=== PATIENT | female | born 2000 | race Caucasian/White ===

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

== ENCOUNTER 2019-12-23 20:01 | Emergency (ER) | payer OTHER, SELFPAY ==
[2019-12-23 20:18] VITALS: BP 97/47; PULSE 70; RESP 16; TEMP 36.7; O2SAT 98; BMI 18.8
--- NOTE | 2019-12-23 20:30 | XR_ITS ---
PROCEDURE: XR FOOT LT MIN 3V CLINICAL INDICATION: pain posttraumatic pain, laceration on top of the foot COMPARISON: No exams were available for comparison FINDINGS: No fracture or dislocation. No lytic or blastic change. There is normal mineralization. The joint spaces are well-preserved. No significant degenerative/arthritic changes. No erosive changes evident. Other findings:None. IMPRESSION: No acute findings. Dictated by: Homar Rivero MD 12/24/2019 08:14 Electronically signed by Homar Rivero MD in [place] 12/24/2019 08:14
[2019-12-23 20:42] VITALS: BP 97/47; PULSE 70; RESP 16; TEMP 36.7; O2SAT 98; BMI 18.8
--- NOTE | 2019-12-23 21:17 | HMH.EDUTC ---
[facility] [place] Clinical Impression: Laceration of left foot Qualifiers: Encounter type: initial encounter Qualified Code(s): S91.312A - Laceration without foreign body, left foot, initial encounter Disposition: Home, Self-Care Condition on Discharge: Good Instructions: How to Care for a Laceration After Repair, DI for Laceration Repair -- Complex Additional Instructions: Keep the wound clean and dry. Keep a dressing on it if you are going to be getting it dirty. Watch the for signs of infection, such as redness, swelling, drainage, fever. etc. Take tylenol or ibuprofen for pain. Follow up with her regular doctor. Return in 10 to 12 days to have the sutures removed. GO TO THE ER FOR ANY WORSENING SYMPTOMS OR CONCERNS. Referrals: Provider,Referral, MD [Primary Care Provider] - Time of Disposition: 21:20 Medical Decision Making - Medical Records Medical records reviewed: Yes: I reviewed the patient's medical records. - Nick Inquiry Pt receiving controlled substance: No Vital Signs: 12/23/19 20:18 12/23/19 20:42 12/23/19 21:30 Temperature 98.1 F 98.1 F 98.1 F Temperature Source Oral Oral Pulse Rate 70 Pulse Rate [Right] 70 70 Respiratory Rate 16 16 16 Blood Pressure 97/47 L Blood Pressure [Left Arm] 97/47 L 97/47 L Blood Pressure Mean [Left Arm] 63 63 Blood Pressure Source [Left Arm] Automatic Cuff Automatic Cuff Blood Pressure Position [Left Arm] Supine Sitting 02 Sat by Pulse Oximetry 98 98 Oxygen Delivery Method Room Air Room Air Orders (Tests/Meds): ORDERS Category Date Time Status Foot XR left minimum 3 views [XR foot LT min 3V] Stat Exams 12/23/19 20:30 Taken [facility] [place] HPI - General Stated complaint: lac to left foot @ 1930 Time Seen by Provider: 12/23/19 20:15 Mode of Arrival: Ambulatory Source of Information: Patient Limitations: No Limitations Description of Symptoms (Recalled from Triage Doc. by RN): PATIENT C/O LEFT FOOT PAIN AND LACERATION TO TOP OF LEFT FOOT AFTER KICKING A TABLE TODAY HEENT Symptoms (Recalled from RN notes): No Resp Symptoms (Recalled from RN notes): No Skin Symptoms (Recalled from RN notes): Yes MS Symptoms (Recalled from RN notes): Yes Functional Status (Recalled from RN notes): WNL - History of Present Illness Provider Complaint: She accidentily bumped her left foot into the metal part under a table. She received a laceration on the dorsal aspect of her left foot. She states that the wound has been bleeding some too. - Related Data Allergies Allergy/AdvReac Type Severity Reaction Status Date / Time No Known Allergies Allergy Verified 11/06/18 15:50 - Worker's Comp Is this a Worker's Comp case?: No [facility] History - Hepatitis A Screen Drug use history?: No High risk sexual behaviors?: No History of sexually transmitted infection?: No Currently employed?: No Childcare worker?: No Do you have indoor plumbing?: Yes Do you have electricity?: Yes Attestation statement:: This patient has been screened for Hepatitis A risk factors. I have reviewed the patient's past medical history: Yes Medical History: Denies:: Cancer, Diabetes Mellitus Type 1, Diabetes Mellitus Type 2, MRSA Laterality Cases: Bilateral: Tonsillectomy Other Surgeries: Yes: No Previous Surgery Amputation: No - Social History Smoking Status: Former smoker Alcohol Intake: never Alcohol Intake Frequency:: a few times a month Substance Use Type: marijuana Occupational Status: other Family Hx:: No significant family history ROS Obtained: Yes All systems reviewed & no additional complaints - Constitutional Constitutional: Denies chills, Denies fever(s) - Musculoskeletal Musculoskeletal: Denies joint pain - Integumentary/Breasts Skin/Breast: Reports as per HPI - Neurologic Neurologic: Denies tingling/numbness/burning sensations Physical Exam - General General appearance: alert, in no apparent distress - Head Head exam: atraumatic,
[2019-12-23 21:30] VITALS: BP 97/47; PULSE 70; RESP 16; TEMP 36.7; O2SAT 98
== END 2019-12-23 21:37 | disposition home or self-care (01) ==
LOC: ER 20:17 → UTC 20:21
PROVIDERS: Emergency Provider Nurse Practitioner Family
DX: S91.312A Laceration without foreign body, left foot, initial encounter (principal); Z87.891 Personal history of nicotine dependence; F12.10 Cannabis abuse, uncomplicated; W22.8XXA Striking against or struck by other objects, initial encounter; Y92.019 Unspecified place in single-family (private) house as the place of occurrence of the external cause
CPT/HCPCS: 12001; 73630; 99202

== ENCOUNTER 2021-10-27 06:59 | Emergency (ER) | payer BC, OTHER, SELFPAY ==
[2021-10-27 07:01] VITALS: BP 150/94; PULSE 96; RESP 18; TEMP 36.6; O2SAT 97; BMI 19.9
[2021-10-27 07:42] VITALS: BP 115/64; PULSE 78; O2SAT 99
[2021-10-27 07:49] LABS: Microscopic, Urine URINE MICROSCOPIC (MICROSCOPIC)
[2021-10-27 07:54] LABS: Basophils # 0.1 K/mm3 (0-0.2); Basophils % 2.9 % (0.1-2.0); Eosinophils % 0.3 % (0.1-12.0); Hematocrit 48.2 % (37.0-47.0); Hemoglobin 15.9 g/dL (12.2-16.2); Lymphocytes # 1.8 K/mm3 (0.7-4.5); Lymphocytes % 43.6 % (10-50); Mean Corpuscular Hemoglobin 32.8 pg (27.0-31.2); Mean Corpuscular Volume 99.4 fl (81-99); Monocytes # 0.3 K/mm3 (0.1-1.0); Monocytes % 8.4 % (1.7-9.3); Neutrophils # 1.8 K/mm3 (1.8-7.8); Neutrophils % 44.7 % (37.0-80.0); Platelet Count 259 K/mm3 (142-424); Red Blood Count 4.85 M/mm3 (4.20-5.40); Red Cell Distribution Width 12.5 % (11.5-17.5); White Blood Count 4.1 K/mm3 (4.8-10.8)
--- NOTE | 2021-10-27 07:56 | HMH.EDGENADL ---
ED Disposition Clinical Impression: Dehydration Vomiting Qualifiers: Vomiting type: unspecified Nausea presence: with nausea Qualified Code(s): R11.2 - Nausea with vomiting, unspecified Disposition: Home, Self-Care Condition on Discharge: Good Instructions: DI for Nausea -- Adult Additional Instructions: Call Asuncion Feliberto to report continued nausea for further instructions on your depression medication. Compazine as needed for nausea and vomiting. Drink plenty of fluids today. Prescriptions: Prochlorperazine Maleate [Compazine 10mg tablet] 10 mg PO TIDP PRN #10 tab PRN Reason: Vomiting Transmission Status: Pending to [id number] Referrals: Andre Cook MD [Primary Care Provider] - - Critical Care Critical Care Time: No Attestation: On 10/27/21, the high probability of a clinically significant, sudden or life threatening deterioration of the following system(s) required my full and direct attention, intervention and personal management. The time I documented below is in addition to time spent performing reported procedures but includes the following listed in this critical care notation. Medical Decision Making - Nick Inquiry Pt receiving controlled substance: No Vital Signs: 10/27/21 07:01 10/27/21 07:42 10/27/21 08:01 Temperature 97.8 F Temperature Source Oral Pulse Rate 78 85 Pulse Rate [Left Radial] 96 H Respiratory Rate 18 Blood Pressure 115/64 139/84 Blood Pressure [Right Arm] 150/94 H Blood Pressure Mean [Right Arm] 112 Blood Pressure Source [Right Arm] Automatic Cuff Blood Pressure Position [Right Arm] Sitting 02 Sat by Pulse Oximetry 97 99 98 Oxygen Delivery Method Room Air - Lab Data Lab Results 10/27/21 07:32: Urine Color Yellow, Urine Appearance Clear, Urine pH 6.0, Ur Specific [place] >= 1.030, Urine Protein Trace, Urine Glucose (UA) Negative, Urine Ketones Negative, Urine Blood Negative, Urine Nitrate Negative, Urine Bilirubin Negative, Urine Urobilinogen 1.0, Ur Leukocyte Esterase Negative, Urine RBC None, Urine WBC 3-5, Ur Squamous Epith Cells Occasional, Urine Bacteria None 10/27/21 07:40: WBC 4.1 L, RBC 4.85, Hgb 15.9, Hct 48.2 H, MCV 99.4 H, MCH 32.8 H, MCHC 33.0, RDW 12.5, Plt Count 259, MPV 8.0, Neut % (Auto) 44.7, Lymph % (Auto) 43.6, [place] % (Auto) 8.4, Eos % (Auto) 0.3, Baso % (Auto) 2.9 H, Neut # (Auto) 1.8, Lymph # (Auto) 1.8, [place] # (Auto) 0.3, Eos # (Auto) 0.0, Baso # (Auto) 0.1 10/27/21 07:40: Urine HCG, Qual Negative 10/27/21 07:40: Sodium 141, Potassium 3.5, Chloride 100, Carbon Dioxide 29, Anion Gap 15.5 H, BUN 12, Creatinine 0.70, Estimated Creat Clear 105, Estimated GFR 105, Est GFR ( Amer) 127, Glucose 100, Calcium 9.4, Total Bilirubin 0.6, AST 44 H, ALT 26, Alkaline Phosphatase 69, Total Protein 8.4 H, Albumin 5.0, Globulin 3.4 H, Albumin/Globulin Ratio 1.5 Result diagrams: 10/27/21 07:40 10/27/21 07:40 Orders (Tests/Meds): ED MEDICATIONS Generic Name Dose Route Start Last Admin Trade Name Freq PRN Reason Stop Dose Admin Sodium Chloride 10 ml 10/27/21 07:32 Sodium Chloride 0.9% 10ml Flush Syringe IV 11/26/21 07:31 NEEDED PRN Maintain IV Site Discontinued Medications Generic Name Dose Route Start Last Admin Trade Name Freq PRN Reason Stop Dose Admin Sodium Chloride 1,000 mls @ 999 mls/hr 10/27/21 07:45 10/27/21 07:51 Sod Chlor 0.9% 1000ml Bag IV 10/27/21 08:45 999 mls/hr .Q1H1M JESSICA Administration Prochlorperazine Edisylate 5 mg 10/27/21 08:03 10/27/21 08:17 Prochlorperazine 10mg/2ml Vial IV 10/27/21 08:04 5 mg ONCE ONE Administration - Reevaluation(s) Time: 08:47 Reevaluation #1: Feels better. Urinated in the emergency department. She would like to be discharged. General Adult HPI - General Chief complaint: Nausea/Vomiting/Diarrhea Stated complaint: vomiting,dizzy Time Seen by Provider: 10/27/21 07:57 Mode of Arrival: Ambulatory Wang
[2021-10-27 08:01] VITALS: BP 139/84; PULSE 85; O2SAT 98
[2021-10-27 08:03] LABS: Appearance,Urine CLEAR (Clear); Bilirubin,Urine Negative (Negative); Blood, Urine Negative (Negative); Color,Urine YELLOW (Yellow); Glucose,Urine (UA) Negative (Negative); Ketones,Urine Negative (Negative); Leukocyte Esterase,Urine Negative (Negative); Nitrate,Urine Negative (Negative); Protein,Urine TRACE (Negative); Specific Gravity, Urine >= 1.030 (1.005-1.030)
[2021-10-27 08:06] LABS: Urine Pregnancy, HCG Qual. Negative (Negative)
[2021-10-27 08:07] LABS: Alanine Aminotransferase 26 U/L (12-78); Albumin/Globulin Ratio 1.5 (1.1-1.8); Alkaline Phosphatase 69 U/L (38-126); Anion Gap 15.5 mEq/L (5-15); Aspartate Amino Transferase 44 U/L (14-36); Bilirubin,Total 0.6 mg/dl (0.2-1.3); Blood Urea Nitrogen 12 mg/dl (7-17); Calcium 9.4 mg/dl (8.4-10.2); Carbon Dioxide 29 mmol/L (22.0-30.0); Chloride 100 mmol/L (98-107); Creatinine Clearance Estimated 105 mL/min (50-200); Estimated Glomerular Filt Rate 105 ml/min (>60); GFR (African American) 127 ML/MIN (>60); Globulin 3.4 g/dL (1.3-3.2); Glucose 100 mg/dl (74-100); Potassium 3.5 mmoL/L (3.5-5.1); Sodium 141 mmol/L (136-145); Total Protein,Serum 8.4 g/dl (6.3-8.2)
[2021-10-27 08:14] LABS: Squamous Epithelial Cell,Urine Occasional #/hpf (0-5)
[2021-10-27 08:30] VITALS: BP 130/73; PULSE 83; O2SAT 99
[2021-10-27 09:09] VITALS: BP 130/73; PULSE 83; RESP 16; TEMP 36.6; O2SAT 99
== END 2021-10-27 09:11 | disposition home or self-care (01) ==
PROVIDERS: Emergency Medicine; Emergency Provider Emergency Medicine; PCP Family Medicine
DX: E86.0 Dehydration (principal); F17.290 Nicotine dependence, other tobacco product, uncomplicated
CPT/HCPCS: 80053; 81001; 81025; 85025; 96365; 96375; 99284

== ENCOUNTER 2022-01-12 18:47 | Emergency (ER) | payer BC, OTHER, SELFPAY ==
[2022-01-12 19:15] VITALS: BP 137/99; PULSE 102; RESP 18; TEMP 36.8; O2SAT 99; BMI 20.2
--- NOTE | 2022-01-12 19:28 | HMH.EDGENADL ---
ED Disposition Clinical Impression: Cannabinoid hyperemesis syndrome, Dehydration Disposition: Home, Self-Care Condition on Discharge: Good Instructions: DI for Cannabinoid Hyperemesis Syndrome Additional Instructions: Compazine as needed for nausea and vomiting. Prescriptions: Prochlorperazine Maleate [Compazine 10mg tablet] 10 mg PO TIDP PRN #10 tab PRN Reason: Vomiting Transmission Status: Received by [id number] Referrals: Andre Cook MD [Primary Care Provider] - - Critical Care Critical Care Time: No Attestation: On 01/12/22, the high probability of a clinically significant, sudden or life threatening deterioration of the following system(s) required my full and direct attention, intervention and personal management. The time I documented below is in addition to time spent performing reported procedures but includes the following listed in this critical care notation. Medical Decision Making - Nick Inquiry Pt receiving controlled substance: No Vital Signs: 01/12/22 19:15 Temperature 98.2 F Temperature Source Oral Pulse Rate [Apical] 102 H Respiratory Rate 18 Blood Pressure [Right Arm] 137/99 H Blood Pressure Mean [Right Arm] 111 Blood Pressure Source [Right Arm] Automatic Cuff Blood Pressure Position [Right Arm] Sitting 02 Sat by Pulse Oximetry 99 Oxygen Delivery Method Room Air - Lab Data Lab Results 01/12/22 17:56: Urine HCG, Qual Negative 01/12/22 17:56: Urine Opiates Screen Negative, Urine Methadone Screen Negative, Ur Barbituates Screen Negative, Ur Phencyclidine Scrn Negative, Ur Amphetamines Screen Negative, U Benzodiazepines Scrn Negative, Urine Cocaine Screen Negative, U Marijuana (THC) Screen Positive H 01/12/22 18:55: WBC 8.0, RBC 4.75, Hgb 15.6, Hct 46.2, MCV 97.2, MCH 32.9 H, MCHC 33.8, RDW 13.0, Plt Count 303, MPV 7.8, Neut % (Auto) 76.8, Lymph % (Auto) 15.4, [place] % (Auto) 5.3, Eos % (Auto) 0.7, Baso % (Auto) 1.8, Neut # (Auto) 6.2, Lymph # (Auto) 1.2, [place] # (Auto) 0.4, Eos # (Auto) 0.1, Baso # (Auto) 0.1 01/12/22 18:55: Sodium 138, Potassium 3.9, Chloride 103, Carbon Dioxide 23, Anion Gap 15.9 H, BUN 11, Creatinine 0.70, Estimated Creat Clear 107, Estimated GFR 105, Est GFR ( Amer) 127, Glucose 104 H, Calcium 10.2, Total Bilirubin 0.5, AST 30, ALT 19, Alkaline Phosphatase 77, Total Protein 7.9, Albumin 4.9, Globulin 3.0, Albumin/Globulin Ratio 1.6, Lipase 84 01/12/22 18:56: Urine Color Yellow, Urine Appearance Sl cloudy, Urine pH 6.0, Ur Specific [place] >= 1.030, Urine Protein 1+, Urine Glucose (UA) Negative, Urine Ketones 2+, Urine Blood 2+, Urine Nitrate Negative, Urine Bilirubin 1+ A, Urine Urobilinogen 0.2, Ur Leukocyte Esterase Negative Result diagrams: 01/12/22 18:55 01/12/22 18:55 Orders (Tests/Meds): ED MEDICATIONS Generic Name Dose Route Start Last Admin Trade Name Freq PRN Reason Stop Dose Admin Sodium Chloride 8 ml 01/12/22 19:58 Sodium Chloride 0.9% 10ml Vial IV 02/11/22 19:57 NEEDED PRN dilute pepcid Discontinued Medications Generic Name Dose Route Start Last Admin Trade Name Freq PRN Reason Stop Dose Admin Belladonna Alkaloids 60 ml 01/12/22 19:58 Gi Cocktail 60ml Udc PO 01/12/22 19:59 ONCE ONE Famotidine 20 mg 01/12/22 19:58 Famotidine 20mg/2ml Vial IV 01/12/22 19:59 ONCE ONE Prochlorperazine Edisylate 5 mg 01/12/22 19:27 01/12/22 19:32 Prochlorperazine 10mg/2ml Vial IV 01/12/22 19:28 5 mg ONCE ONE Administration Sodium Chloride 2,000 ml 01/12/22 19:27 01/12/22 19:32 Sodium Chloride 0.9% 1000ml Bag IV 01/12/22 19:28 2,000 ml BOLUS ONE Administration ORDERS Category Date Time Status Urinalysis and Microscopic Stat Lab 01/12/22 18:56 Results Medical Decision Narrative: I raised the possibility of cannabis hyperemesis syndrome with the patient and her mother. The patient states that she is aware of this syndrome and mother says that she hers
[2022-01-12 19:30] LABS: Microscopic, Urine URINE MICROSCOPIC (MICROSCOPIC)
[2022-01-12 19:34] LABS: Basophils # 0.1 K/mm3 (0-0.2); Basophils % 1.8 % (0.1-2.0); Chloride 103 mmol/L (98-107); Eosinophils # 0.1 K/mm3 (0.0-0.4); Eosinophils % 0.7 % (0.1-12.0); Hematocrit 46.2 % (37.0-47.0); Hemoglobin 15.6 g/dL (12.2-16.2); Lymphocytes # 1.2 K/mm3 (0.7-4.5); Lymphocytes % 15.4 % (10-50); Mean Corpuscular HGB Conc 33.8 g/dL (31.8-35.4); Mean Corpuscular Hemoglobin 32.9 pg (27.0-31.2); Mean Corpuscular Volume 97.2 fl (81-99); Mean Platelet Volume 7.8 fl (7.4-10.4); Monocytes # 0.4 K/mm3 (0.1-1.0); Monocytes % 5.3 % (1.7-9.3); Neutrophils # 6.2 K/mm3 (1.8-7.8); Neutrophils % 76.8 % (37.0-80.0); Platelet Count 303 K/mm3 (142-424); Red Blood Count 4.75 M/mm3 (4.20-5.40)
[2022-01-12 19:34] LABS: Appearance,Urine SL CLOUDY (Clear); Blood, Urine 2+ (Negative); Color,Urine YELLOW (Yellow); Glucose,Urine (UA) Negative (Negative); Ketones,Urine 2+ (Negative); Leukocyte Esterase,Urine Negative (Negative); Nitrate,Urine Negative (Negative); Protein,Urine 1+ (Negative); Specific Gravity, Urine >= 1.030 (1.005-1.030); Urobilinogen,Urine 0.2 EU/dl (0.2)
[2022-01-12 19:35] LABS: Potassium 3.9 mmoL/L (3.5-5.1); Sodium 138 mmol/L (136-145)
[2022-01-12 19:37] LABS: Urine Pregnancy, HCG Qual. Negative (Negative)
[2022-01-12 19:37] LABS: Alanine Aminotransferase 19 U/L (12-78); Alkaline Phosphatase 77 U/L (38-126); Aspartate Amino Transferase 30 U/L (14-36); Bilirubin,Total 0.5 mg/dl (0.2-1.3); Blood Urea Nitrogen 11 mg/dl (7-17); Creatinine Clearance Estimated 107 mL/min (50-200); Estimated Glomerular Filt Rate 105 ml/min (>60); GFR (African American) 127 ML/MIN (>60)
[2022-01-12 19:38] LABS: Albumin Level 4.9 g/dl (3.5-5.0); Albumin/Globulin Ratio 1.6 (1.1-1.8); Anion Gap 15.9 mEq/L (5-15); Calcium 10.2 mg/dl (8.4-10.2); Carbon Dioxide 23 mmol/L (22.0-30.0); Glucose 104 mg/dl (74-100); Lipase 84 U/L (23-300); Total Protein,Serum 7.9 g/dl (6.3-8.2)
[2022-01-12 19:41] LABS: Bilirubin,Urine 1+ (Negative)
[2022-01-12 19:45] LABS: Amphetamine/Metha Screen,Urine Negative ng/ml (<1000)
[2022-01-12 19:46] LABS: Barbiturates Screen,Urine Negative ng/ml (<200)
[2022-01-12 19:47] LABS: Benzodiazepines Screen,Urine Negative ng/ml (<200); Cannabinoid Screen,Urine Positive ng/ml (<50)
[2022-01-12 19:48] LABS: Cocaine Screen,Urine Negative ng/ml (<300); Methadone Screen,Urine Negative ng/ml (<300)
[2022-01-12 19:49] LABS: Opiate Screen,Urine Negative ng/ml (<300)
[2022-01-12 19:50] LABS: Phencyclidine Screen,Urine Negative ng/ml (<25)
--- NOTE | 2022-01-12 19:51 | PC.NURSE ---
MD with pt, states she is feeling better and would like to go to work later tonight. MD is ok with pt receiving at least 1 L of IVF. Pressure bag placed to facilitate fluids infusing well.
[2022-01-12 20:02] LABS: Bacteria,Urine 1+ /lpf
[2022-01-12 20:16] VITALS: BP 128/85; PULSE 81; RESP 16; TEMP 36.8; O2SAT 99
== END 2022-01-12 20:19 | disposition home or self-care (01) ==
PROVIDERS: Emergency Provider Emergency Medicine; PCP Family Medicine
DX: R11.2 Nausea with vomiting, unspecified (principal); F12.120 Cannabis abuse with intoxication, uncomplicated
CPT/HCPCS: 80053; 80305; 81001; 81025; 83690; 85025; 96374; 96375

== ENCOUNTER → 2022-03-25 14:37 | Outpatient (CLI) | payer BC, OTHER, SELFPAY ==
[2022-03-25 15:41] LABS: Basophils # 0.1 K/mm3 (0-0.2); Basophils % 1.2 % (0.1-2.0); Eosinophils # 0.2 K/mm3 (0.0-0.4); Eosinophils % 3.7 % (0.1-12.0); Hematocrit 44.9 % (37.0-47.0); Hemoglobin 14.2 g/dL (12.2-16.2); Lymphocytes # 2.1 K/mm3 (0.7-4.5); Lymphocytes % 40.1 % (10-50); Mean Corpuscular HGB Conc 31.7 g/dL (31.8-35.4); Mean Corpuscular Hemoglobin 31.8 pg (27.0-31.2); Mean Corpuscular Volume 100.2 fl (81-99); Monocytes # 0.3 K/mm3 (0.1-1.0); Monocytes % 5.9 % (1.7-9.3); Neutrophils # 2.6 K/mm3 (1.8-7.8); Neutrophils % 49.1 % (37.0-80.0); Platelet Count 369 K/mm3 (142-424); Red Blood Count 4.48 M/mm3 (4.20-5.40); Red Cell Distribution Width 12.8 % (11.5-17.5); White Blood Count 5.2 K/mm3 (4.8-10.8)
[2022-03-25 16:03] LABS: HCG Qualitative, Serum Negative (Negative)
[2022-03-25 16:08] LABS: Alanine Aminotransferase 22 U/L (12-78); Albumin Level 4.6 g/dl (3.5-5.0); Albumin/Globulin Ratio 1.8 (1.1-1.8); Alkaline Phosphatase 57 U/L (38-126); Amylase 62 U/L (30-110); Anion Gap 10.4 mEq/L (5-15); Aspartate Amino Transferase 26 U/L (14-36); Blood Urea Nitrogen 11 mg/dl (7-17); Calcium 10.1 mg/dl (8.4-10.2); Carbon Dioxide 28 mmol/L (22.0-30.0); Chloride 106 mmol/L (98-107); Estimated Glomerular Filt Rate 105 ml/min (>60); GFR (African American) 127 ML/MIN (>60); Globulin 2.5 g/dL (1.3-3.2); Glucose 75 mg/dl (74-100); Lipase 106 U/L (23-300); Potassium 4.4 mmoL/L (3.5-5.1); Sodium 140 mmol/L (136-145); Total Protein,Serum 7.1 g/dl (6.3-8.2)
[2022-03-25 16:11] LABS: Bilirubin,Total 0.1 mg/dl (0.2-1.3)
== END ==
PROVIDERS: PCP Family Medicine; Visit Provider Family Medicine
DX: R10.11 Right upper quadrant pain (principal); R11.2 Nausea with vomiting, unspecified
CPT/HCPCS: 36415; 80053; 82150; 83690; 84703; 85025

== ENCOUNTER → 2022-04-01 09:01 | Outpatient (CLI) | payer BC, OTHER, SELFPAY ==
--- NOTE | 2022-04-01 09:06 | US_ITS ---
FINAL REPORT CLINICAL HISTORY: ABD PAIN, NAUSEA AND VOMITING COMPARISON: 10/05/2018 FINDINGS: Sonographic images of the right upper quadrant were obtained. The pancreas is partially obscured.The liver has an unremarkable appearance. The gallbladder is somewhat contracted as a nonspecific finding with a small amount of sludge. There are no gallstones. There is no evidence of biliary ductal dilatation.The common duct measures 3 mm. Limited images of the right kidney are unremarkable. IMPRESSION: Some a contracted gallbladder is a nonspecific finding. Small amount of sludge within the gallbladder with no evidence of gallstones. Reviewed, Interpreted and Dictated by Chicho Bowers III, MD Transcribed by Ann Dutta Authenticated and [facility]
== END ==
PROVIDERS: PCP Family Medicine; Visit Provider Family Medicine
DX: R10.11 Right upper quadrant pain (principal); R11.2 Nausea with vomiting, unspecified
CPT/HCPCS: 76705

== ENCOUNTER → 2022-04-09 10:40 | Outpatient (CLI) | payer BC, OTHER, SELFPAY ==
--- NOTE | 2022-04-09 10:46 | NM_ITS ---
FINAL REPORT TECHNIQUE: The patient was injected with 7.63 mCi of technetium 99m Choletec and subsequently Images of the abdomen were obtained for one hour. CLINICAL HISTORY: ABDOMINAL PAIN NAUSEA AND VOMITING SLUDGE ON U/S 11:15AM 7.63MCI TC CHOLETEC WE ROLLED THE PT ONTO RT SIDE HOPING TO THROW THE G.B. AWAY FROM THE BOWEL, BUT WAS NOT SUCCESSFUL FINDINGS: Hepatic uptake is normal. Common bile duct and bowel is seen by 15 minutes. The gallbladder is likely visualized but overlaps the duodenum. Gallbladder ejection fraction was unable to be obtained. IMPRESSION: No evidence of bile duct obstruction. Probable visualization of the gallbladder but suboptimal. No gallbladder ejection fraction obtained. Reviewed, Interpreted and Dictated by Chicho Bowers III, MD Transcribed by Elsie Moreno Authenticated and [facility]
== END ==
PROVIDERS: PCP Family Medicine; Visit Provider Family Medicine
DX: R10.11 Right upper quadrant pain (principal); R11.2 Nausea with vomiting, unspecified
CPT/HCPCS: 78226; A9537

== ENCOUNTER → 2023-01-04 14:39 | Outpatient (POV) | payer BC, OTHER, SELFPAY | PROVIDERS: Visit Provider Dermatology | DX: Z00.00 Encounter for general adult medical examination without abnormal findings (principal) ==

== ENCOUNTER → 2023-03-08 23:33 | Outpatient (CLI) | payer BC, OTHER, SELFPAY | PROVIDERS: PCP Student in an Organized Health Care Education/Training Program; Visit Provider Student in an Organized Health Care Education/Training Program | DX: J02.9 Acute pharyngitis, unspecified (principal) ==

== ENCOUNTER → 2023-05-09 23:20 | Outpatient (CLI) | payer BC, OTHER, SELFPAY | PROVIDERS: PCP Student in an Organized Health Care Education/Training Program; Visit Provider Student in an Organized Health Care Education/Training Program | DX: U07.1 COVID-19 (principal); R10.9 Unspecified abdominal pain | CPT/HCPCS: 87635 ==

== ENCOUNTER → 2023-08-18 09:59 | Outpatient (CLI) | payer BC, OTHER, SELFPAY ==
[2023-08-18 17:54] LABS: Adenovirus,PCR Not Detected (NotDetected); Coronavirus 19, PCR Not Detected (NotDetected); Coronavirus 229E Not Detected (NotDetected); Coronavirus NL63 Not Detected (NotDetected); Coronavirus OC43 Not Detected (NotDetected); Coronovirus HKU1,PCR Not Detected (NotDetected); Human Metapneumovirus Not Detected (NotDetected); Influenza A, PCR Not Detected (NotDetected); Influenza AH1, 2009 Not Detected (NotDetected); Influenza AH1, PCR Not Detected (NotDetected); Influenza AH3,PCR Not Detected (NotDetected); Influenza B, PCR Not Detected (NotDetected); Parainfluenza 1, PCR Not Detected (NotDetected); Parainfluenza 2, PCR Not Detected (NotDetected); Parainfluenza 3, PCR Not Detected (NotDetected); Parainfluenza 4, PCR Not Detected (NotDetected); Respiratory Syncytial Virus Not Detected (NotDetected); Rhinovirus/Enterovirus Not Detected (NotDetected)
== END ==
LOC: LAB.DROPOF 08-19 09:59
PROVIDERS: PCP Family Medicine; Visit Provider Student in an Organized Health Care Education/Training Program
DX: J02.9 Acute pharyngitis, unspecified (principal); R05.9 Cough, unspecified; R09.89 Other specified symptoms and signs involving the circulatory and respiratory systems
CPT/HCPCS: 87070; 87581; 87632; 87635; 87798

== ENCOUNTER 2023-11-04 10:35 | Outpatient (CLI) | payer BC, OTHER, SELFPAY ==
--- NOTE | 2023-11-04 10:55 | CT_ITS ---
FINAL REPORT CLINICAL HISTORY: new headaches, dizziness COMPARISON: None FINDINGS: Axial images of the head were obtained without contrast. Coronal and sagittal reformatted images were also obtained.This study was performed with techniques to keep radiation doses as low as reasonably achievable (ALARA). Individualized dose reduction techniques using automated exposure control or adjustment of mA and/or kV according to the patient's size were employed. There is no evidence of intracranial hemorrhage or mass. The ventricular size is within normal limits. There is no evidence of shift of the midline structures. No abnormal extra axial fluid collection is identified. No skull abnormality is seen on the bone window images. IMPRESSION: No acute intracranial abnormality. Reviewed, Interpreted and Dictated by Chicho Bowers III, MD Transcribed by Niesha Rowe Authenticated and . [facility]
== END 2023-11-04 23:59 ==
LOC: RAD 10:35
PROVIDERS: PCP Family Medicine; Visit Provider Student in an Organized Health Care Education/Training Program
DX: R42 Dizziness and giddiness (principal); R51.9 Headache, unspecified
CPT/HCPCS: 70450

== ENCOUNTER 2024-06-08 10:42 | Outpatient (CLI) | payer BC, OTHER, SELFPAY | END 2024-06-08 23:59 | disposition home or self-care (01) | LOC: LAB.DROPOF 06-09 10:24 | PROVIDERS: PCP Student in an Organized Health Care Education/Training Program; Visit Provider Student in an Organized Health Care Education/Training Program | DX: R50.9 Fever, unspecified (principal); R10.9 Unspecified abdominal pain; R11.10 Vomiting, unspecified | CPT/HCPCS: 87086; 87088; 87186 ==

== ENCOUNTER 2024-06-26 11:45 | Outpatient (CLI) | payer BC, OTHER, SELFPAY | END 2024-06-26 23:59 | disposition home or self-care (01) | LOC: LAB.DROPOF 06-27 10:46 | PROVIDERS: PCP Student in an Organized Health Care Education/Training Program; Visit Provider Student in an Organized Health Care Education/Training Program | DX: N39.0 Urinary tract infection, site not specified (principal); R10.9 Unspecified abdominal pain | CPT/HCPCS: 87086 ==

== ENCOUNTER 2024-06-27 15:08 | Outpatient (CLI) | payer BC, OTHER, SELFPAY ==
[2024-06-27 15:32] LABS: Basophils # 0.1 K/mm3 (0-0.2); Basophils % 2.4 % (0.1-2.0); Eosinophils % 0.6 % (0.1-12.0); Hematocrit 39.6 % (37.0-47.0); Hemoglobin 13.4 g/dL (12.2-16.2); Lymphocytes # 1.8 K/mm3 (0.7-4.5); Lymphocytes % 43.3 % (10-50); Mean Corpuscular HGB Conc 33.9 g/dL (31.8-35.4); Mean Corpuscular Volume 97.4 fl (81-99); Mean Platelet Volume 7.3 fl (7.4-10.4); Monocytes # 0.3 K/mm3 (0.1-1.0); Monocytes % 6.6 % (1.7-9.3); Neutrophils # 1.9 K/mm3 (1.8-7.8); Neutrophils % 47.2 % (37.0-80.0); Platelet Count 291 K/mm3 (142-424); Red Blood Count 4.07 M/mm3 (4.20-5.40); Red Cell Distribution Width 12.6 % (11.5-17.5); White Blood Count 4.1 K/mm3 (4.8-10.8)
[2024-06-27 15:58] LABS: Alanine Aminotransferase 17 U/L (12-78); Albumin Level 4.5 g/dl (3.5-5.0); Alkaline Phosphatase 43 U/L (38-126); Anion Gap 12.7 mEq/L (5-15); Aspartate Amino Transferase 24 U/L (14-36); Bilirubin,Total 0.4 mg/dl (0.2-1.3); Blood Urea Nitrogen 11 mg/dl (7-17); Calcium 9.6 mg/dl (8.4-10.2); Carbon Dioxide 28 mmol/L (22.0-30.0); Chloride 104 mmol/L (98-107); Chol/HDL Ratio 2.3 (1-3.5); Cholesterol 128 mg/dl (140-200); Estimated Glomerular Filt Rate 88 ml/min (>60); GFR (African American) 107 ML/MIN (>60); Globulin 2.3 g/dL (1.3-3.2); Glucose 55 mg/dl (74-100); HDL Cholesterol 55 mg/dl (40-60); Potassium 3.7 mmoL/L (3.5-5.1); Sodium 141 mmol/L (136-145); Total Protein,Serum 6.8 g/dl (6.3-8.2); Triglycerides 144 mg/dl (30-150); VLDL Cholesterol 29 mg/dL (0-40)
[2024-06-27 15:59] LABS: HCG Qualitative, Serum Negative (Negative)
[2024-06-27 16:09] LABS: Direct LDL Cholesterol 57.88 mg/dL (100-129)
[2024-06-27 16:14] LABS: 25-OH Vitamin D, Total 52.4 ng/mL (30-100)
[2024-06-27 16:28] LABS: Thyroid Stimulating Hormone 0.29 uIU/mL (0.465-4.68)
[2024-06-27 16:44] LABS: HIV (1&2) Antibody Rapid NONREACTIVE (NONREACTIVE)
[2024-06-27 17:39] LABS: Hemoglobin A1C 5.1 % (4.0-6.0)
[2024-06-28 09:19] LABS: HCV Ab Non Reactive (Non Reactive)
== END 2024-06-27 23:59 | disposition home or self-care (01) ==
LOC: LAB 15:10
PROVIDERS: PCP Family Medicine; Visit Provider Student in an Organized Health Care Education/Training Program
DX: R10.9 Unspecified abdominal pain (principal); Z83.3 Family history of diabetes mellitus; Z11.4 Encounter for screening for human immunodeficiency virus [HIV]; Z13.220 Encounter for screening for lipoid disorders; Z13.29 Encounter for screening for other suspected endocrine disorder; Z13.21 Encounter for screening for nutritional disorder; Z11.59 Encounter for screening for other viral diseases
CPT/HCPCS: 36415; 80050; 80053; 80061; 82306; 83036; 84443; 84703; 85025; 86803; 87389

== ENCOUNTER 2024-06-29 09:08 | Outpatient (CLI) | payer BC, OTHER, SELFPAY ==
--- NOTE | 2024-06-29 09:09 | CT_ITS ---
PROCEDURE INFORMATION: Exam: CT Abdomen And Pelvis Without Contrast Exam date and time: 06/29/2024 9:13 AM Age: 23 years old Clinical indication: Abdominal pain; Additional info: Abd pain, hematuria, UTI few weeks ago TECHNIQUE: Imaging protocol: Computed tomography of the abdomen and pelvis without contrast. Radiation optimization: All CT scans at this facility use at least one of these dose optimization techniques: automated exposure control; mA and/or kV adjustment per patient size (includes targeted exams where dose is matched to clinical indication); or iterative reconstruction. COMPARISON: NM HEPATOBILIARY WO PHARM 04/09/2022 12:29 PM FINDINGS: Liver: Normal. No mass. Gallbladder and biliary ducts: The gallbladder is partially distended. Pancreas: Normal. No ductal dilation. Spleen: Normal. No splenomegaly. Adrenal glands: Normal. No mass. Kidneys and ureters: The kidneys are normal in size and contour without hydronephrosis or nephrolithiasis. Stomach and bowel: There is no evidence for small bowel obstruction. Stool and diverticula are scattered throughout the colon. Appendix: No evidence of appendicitis. Intraperitoneal space: There is a small amount of free pelvic fluid in the posterior cul-de-sac. Vasculature: Unremarkable. No abdominal aortic aneurysm. Lymph nodes: Unremarkable. No enlarged lymph nodes. Urinary bladder: The urinary bladder is relatively contracted. Reproductive: There is cystic enlargement of the left adnexa measuring up to 5.9 x 5.3 x 4.8 cm. Please correlate with pelvic ultrasound. Bones/joints: Unremarkable. No acute fracture. Soft tissues: Unremarkable. Other findings: Noncontrast technique limits assessment. IMPRESSION: Limited noncontrast CT. No evidence for urolithiasis or obstructive uropathy. Please note that noncontrast CT is insensitive for the detection of pyelonephritis. Please correlate clinically. 5.9 cm left adnexal cyst. Please correlate with pelvic ultrasound. Scattered diverticulosis.
== END 2024-06-29 23:59 | disposition home or self-care (01) ==
LOC: RAD 09:09
PROVIDERS: PCP Student in an Organized Health Care Education/Training Program; Visit Provider Student in an Organized Health Care Education/Training Program
DX: R10.9 Unspecified abdominal pain (principal); R31.9 Hematuria, unspecified
CPT/HCPCS: 74176

== ENCOUNTER 2024-07-04 08:32 | Outpatient (CLI) | payer BC, OTHER, SELFPAY ==
--- NOTE | 2024-07-04 08:37 | US_ITS ---
PROCEDURE: US TRANSVAGINAL CLINICAL INDICATION: adnexal cyst COMPARISON: CT CT ABDOMEN PELVIS WO CON from 06/29/2024 FINDINGS: Transvaginal and transabdominal sonographic images of the pelvis were obtained. UTERUS: 7.5 cm x 4.7 cmx 2.7 cm anteverted with a combined endometrial thickness of 4.5mm. Endometrium is homogeneous in appearance. Superior to the uterus in the midline there is a complex mass measuring 5.0 cm x 4.8 cm x 6.6 cm. There is a cystic area within this mass surrounded by hyperechoic tissue. There is posterior shadowing here. LEFT OVARY: [id number] with a volume of 10ml. Within the left ovary there is a follicle measuring 1.3 cm x 0.73 cm x 1.2 cm There are multiple small peripheral follicles giving the ovary a polycystic appearance. RIGHT OVARY: 4cmx [id number] with a volume of 6.5ml. There are multiple small peripheral follicles giving the ovary a polycystic appearance. Both ovaries are seen and appear polycystic. Doppler flow to both ovaries are seen. There is no fluid in the cul-de-sac. IMPRESSION: 1. Anteverted uterus normal in shape and size. The endometrium is thin. 2. Superior to the uterus in the midline there is a complex mass measuring up to 6.6 cm. There is a small hypoechoic cystic area in the middle of the mass and surrounding this small cystic area is a hyperechoic/calcified area with posterior shadowing. It does not appear to be attached to the ovary or uterus. Suggest a gynecology consult to further assess this mass. 3. Both ovaries are seen and appear polycystic. There is a 1.3 cm follicle in the left ovary. 4. The fluid in the cul-de-sac is not present today that was seen on her CT scan. Dictated by: Evaristo Bower MD 07/04/2024 10:08 Evaristo Bower MD in OV 07/04/2024 10:08
== END 2024-07-04 23:59 | disposition home or self-care (01) ==
LOC: RAD 08:33
PROVIDERS: PCP Family Medicine; Visit Provider Student in an Organized Health Care Education/Training Program
DX: N94.9 Unspecified condition associated with female genital organs and menstrual cycle (principal)
CPT/HCPCS: 76830

== ENCOUNTER 2024-07-20 09:28 | Outpatient (CLI) | payer BC, OTHER, SELFPAY ==
[2024-07-20 11:22] LABS: Alanine Aminotransferase 20 U/L (12-78); Albumin Level 5.3 g/dl (3.5-5.0); Albumin/Globulin Ratio 1.7 (1.1-1.8); Alkaline Phosphatase 62 U/L (38-126); Anion Gap 17.2 mEq/L (5-15); Aspartate Amino Transferase 28 U/L (14-36); Blood Urea Nitrogen 13 mg/dl (7-17); Carbon Dioxide 25 mmol/L (22.0-30.0); Chloride 103 mmol/L (98-107); Estimated Glomerular Filt Rate 77 ml/min (>60); GFR (African American) 93 ML/MIN (>60); Globulin 3.2 g/dL (1.3-3.2); Glucose 85 mg/dl (74-100); Potassium 4.2 mmoL/L (3.5-5.1); Sodium 141 mmol/L (136-145); Total Protein,Serum 8.5 g/dl (6.3-8.2)
[2024-07-20 11:41] LABS: Basophils # 0.1 K/mm3 (0-0.2); Eosinophils % 0.8 % (0.1-12.0); Hematocrit 46.8 % (37.0-47.0); Lymphocytes # 1.4 K/mm3 (0.7-4.5); Lymphocytes % 27.7 % (10-50); Mean Corpuscular HGB Conc 34.2 g/dL (31.8-35.4); Mean Corpuscular Hemoglobin 33.2 pg (27.0-31.2); Mean Platelet Volume 7.7 fl (7.4-10.4); Monocytes # 0.5 K/mm3 (0.1-1.0); Neutrophils % 60.6 % (37.0-80.0); Platelet Count 347 K/mm3 (142-424); Red Blood Count 4.82 M/mm3 (4.20-5.40); Red Cell Distribution Width 13.1 % (11.5-17.5)
[2024-07-20 11:43] LABS: HCG,Quantitative < 2 mIU/ml (0-5.42)
== END 2024-07-20 23:59 | disposition home or self-care (01) ==
LOC: PREOP 09:29
PROVIDERS: PCP Family Medicine; Visit Provider Nurse Practitioner Obstetrics & Gynecology
DX: N83.8 Other noninflammatory disorders of ovary, fallopian tube and broad ligament (principal)
CPT/HCPCS: 80053; 84702; 85025

== ENCOUNTER 2024-07-23 12:19 | Observation (INO) | payer BC, OTHER, SELFPAY ==
[2024-07-20 09:57] VITALS: BMI 21.9
[2024-07-23] VITALS (25 sets, daily range): BP systolic 102–135; BP diastolic 62–84; PULSE 79–107; RESP 14–18; TEMP 36.2–43; O2SAT 94–100
[2024-07-23] MEDS: 0.9 % SODIUM CHLORIDE 1000ML 1,000 ML 25 ML IV (11:42)
--- NOTE | 2024-07-23 12:03 | EXP.ANES.CKL ---
[facility] Disclaimer: The information contained in this section may have been updated after the patient was seen, as this information can be updated by other users. Medical History Generalized anxiety disorder Attention deficit disorder (ADD) in adult Surgical History Hx of wisdom tooth extraction Hx of tonsillectomy Family History Other Family history of diabetes mellitus Hypertension Social History Smoking Status: Current every day smoker tobacco type: e-cigarettes alcohol intake: never substance use type: marijuana current occupational status: unemployed and other Travel in the last 8 weeks: None number of children: 0 [facility] Anesthesia Checklist Patient Identification Patient Identification: Arm Band and Family Structural Data Admitted From: Home Planned Operative Procedure/s: Left ovarian cystectomy Consent for Planned Operative Procedure(s) Verified: Yes Verified Documents: Surgical Consent and History and Physical NPO Status Verified Time NPO: 00:00 Additional verifications Patient : No Anesthesia Reactions: No Hx Blood Transfusions: No Blood Transfusion Reaction: No Cephalosporin Allergy: No Previous Colonoscopy: No Airway Assessment Mallampati Score:: Class II C-Spine Mobility Assessed: Yes TMJ Mobility Assessed: Yes Dentition: Good Dentition Neurological Assessment Level of Consciousness: Awake, Alert, Appropriate and Follows Commands Hx Seizures: No Numbness or tingling in extremities: No Anesthesia Plan Anesthesia Risk discussed: Yes ASA Class: II Anesthesia Type: General
[2024-07-23] MEDS: CEFAZOLIN SODIUM 2 GM in 0.9 % SODIUM CHLORIDE 100 ML IV (12:12)
--- NOTE | 2024-07-23 12:28 | HMH.PHAINT1 ---
Pharmacy Intervention Comments: MEDICATION RECONCILIATION COMPLETED ON PATIENT USING EXTERNAL FILL HISTORY FROM PHARMACY AND LIST FROM BEHAVIORAL HEALTH. -CARMELO PARADA, JEWELSD
--- NOTE | 2024-07-23 13:31 | EXP.OP.NOTE ---
Date of procedure: 07/23/24 Pre-op Diagnosis:: Left adnexal mass Post-op Diagnosis:: Right ovarian cyst Procedure performed:: Right ovarian cystectomy Surgeon:: Evaristo Bower MD FOOD SERVICE CLERK:: Epifanio Bui Anesthesia: GETGrecia Estimated blood loss (mL): 50 Clinical Note:: She is a 23-year-old 0 para 0 young lady who complains of severe left-sided pain. She had a CT scan that showed a left ovarian cyst. Ultrasound was performed and it showed a mass above the left ovary measuring 5 to 6 cm. It did not appear cystic on ultrasound. It appeared solid. We discussed the various options and she elected to have a mini laparotomy rather than do a laparoscopy given the fact that this mass looks solid. The risks and benefits of surgery discussed with patient. Operative findings:: She had a 6 cm right ovarian simple cyst that was filled with serous fluid. There were no masses on the left ovary or anywhere in the pelvis. The uterus is small and anteverted. The left ovary appeared completely normal. Tubes appeared normal and they were followed to their fimbriated ends. The deep pelvis appeared normal as well. Operative note:: She was taken operative room where general anesthesia was found be adequate. She is prepped after sterile fashion in the supine position. A Youssef catheter is in the bladder. A small Pfannenstiel incision was made with knife and carried through to the underlying layer of fascia with cautery. The fascia was opened midline and extended laterally using Hernandez scissors. Tony clamps were applied to the superior aspect the fascia station which was tented up and the underlying rectus muscle dissected off using cautery. The Tony clamps were then applied the inferior aspect of the fascial incision which was similar fashion was tented up and the underlying rectus muscles dissected off using cautery. The rectus muscles were then the midline the peritoneum identified tented up and entered sharply with Metzenbaum scissors. This incision was then extended superiorly and inferiorly with cautery. There was good visualization of the bladder inferiorly. I then inserted a [place] retractor into the abdominal cavity and packed away the bowel with warm moist packs. After careful examination of the abdomen I could not find any left-sided ovarian cyst or mass. On the right side there was a 5 to 6 cm simple cyst this ruptured when I grasped the right ovary and I allowed it to drain. I elected not to remove or open up the right ovarian tissue. It was completely collapsed. After once again carefully examining the pelvis as well as the upper abdomen again there was no evidence of any masses. We then elected to close the patient. The peritoneum was grasped with Lita clamps and closed using running 2-0 Vicryl suture. The right rectus muscle had from the attachment to the pubic bone so I elected to reattach this there. The fascia was extremely thin. Using [id number] 2-0 PDS sutures I reattached to the posterior aspect of the fascia of the pubic bone. The rectus muscles were then reapproximated using running 0 Vicryl suture. The fascia was then closed using a running #1 Vicryl suture. The fascia itself was also quite thin. The subcutaneous tissues were then irrigated with warm water followed by closure of Yuliana's fascia using running 2-0 Monocryl suture. The skin was closed with absorbable minnie. The skin was then cleaned with Hibiclens and Steri-Strips were applied to the incision. A sterile dressing was applied. Anesthesia then performed a T AP block bilaterally. She tolerated procedure well and was taken the recovery room in excellent condition. All sponge, instrument and needle counts were correct. The estimated blood loss was less than 50 cc. Condition: stable Disposition: PACU Specimens:: None Complications:: None
[2024-07-23] MEDS: HYDROMORPHONE 2MG/ML SYRINGE 0.5 MG IV ×4 (13:32→13:55)
--- NOTE | 2024-07-23 13:36 | P.PNANES_ITS ---
[facility] Anesthesia Record Part I Anesthesia Record I Intake, IV Amount: 1,100 Hydration: Adequate Estimated blood loss (mL): 49 Urine output (mL): 100 Blood Products used (#): none Blood Pressure: 102/62 SaO2: 99 Pulse Rate: 107 Airway Patency: Patent Respiratory Rate: 14 Temperature: 97.9 F Patient is:: Drowsy and Stable Stable to PACU at:: 13:30
[2024-07-23] MEDS: KETOROLAC 30MG/ML VIAL 30 MG IV (14:00)
[2024-07-23 14:08] LABS: Microscopic,Cath URINE MICROSCOPIC (MICROSCOPIC)
[2024-07-23] MEDS: MORPHINE 2MG/ML SYRINGE 2 MG IV (14:15)
[2024-07-23] MEDS: ACETAMINOPHEN 325MG TAB 650 MG PO ×2 (14:31→19:58)
[2024-07-23] MEDS: LACTATED RINGERS 1000ML 1,000 ML 125 ML IV (14:31)
[2024-07-23 14:49] LABS: Appearance,Urine/Cath CLEAR (Clear); Bilirubin,Cath Negative (Negative); Blood, Urine/Cath Negative (Negative); Color,Urine/Cath YELLOW (Yellow); Glucose,Urine/Cath (UA) Negative (Negative); Ketones,Urine/Cath Negative (Negative); Leukocyte Esterase,Cath Negative (Negative); Nitrate,Cath Negative (Negative); PH,Urine/Cath 6.5 (5.0-8.5); Protein,Urine/Cath Negative (Negative); Specific Gravity, Urine/Cath 1.025 (1.005-1.030); Urobilinogen,Cath 0.2 EU/dl (0.2)
[2024-07-23 15:29] LABS: WBC,Urine/Cath Occasional #/hpf (0-3)
[2024-07-23 15:30] LABS: Mucus,Urine/Cath 1+ /lpf
[2024-07-23] MEDS: HYDROMORPHONE 2MG/ML SYRINGE 1 MG IV (17:28)
[2024-07-23] MEDS: ONDANSETRON 4MG/2ML VIAL 4 MG IV (17:31)
[2024-07-23] MEDS: KETOROLAC 30MG/ML VIAL 15 MG IV (19:30)
[2024-07-23] MEDS: PROMETHAZINE HCL 25MG/ML 1ML VIAL 12.5 MG IV (19:57)
[2024-07-23] MEDS: CEFAZOLIN SODIUM 1 GM in 0.9 % SODIUM CHLORIDE 50 ML IV (20:17)
[2024-07-24] VITALS (7 sets, daily range): BP systolic 100–123; BP diastolic 47–84; PULSE 69–97; RESP 14–18; TEMP 36.6–36.9; O2SAT 97–100
[2024-07-24] MEDS: KETOROLAC 30MG/ML VIAL 15 MG IV ×4 (01:17→18:49)
[2024-07-24] MEDS: ACETAMINOPHEN 325MG TAB 650 MG PO ×4 (01:18→18:49)
[2024-07-24] MEDS: LACTATED RINGERS 1000ML 1,000 ML 125 ML IV ×2 (01:45→10:51)
[2024-07-24] MEDS: HYDROMORPHONE 2MG/ML SYRINGE 1 MG IV ×2 (01:50→08:23)
[2024-07-24] MEDS: PROMETHAZINE HCL 25MG/ML 1ML VIAL 12.5 MG IV ×4 (01:51→22:01)
[2024-07-24] MEDS: CEFAZOLIN SODIUM 1 GM in 0.9 % SODIUM CHLORIDE 50 ML IV (03:39)
--- NOTE | 2024-07-24 04:00 | PC.NURSE ---
Patient laying in bed, pt states pain is much better since pain medication administration. Pt has rested throughout the shift, pt ambulated to bathroom with standby assist this shift, pt states pain worsens when getting out of bed, lung sounds clear bilaterally throughout, bowel sounds active in all quadrants, no swelling on legs noted, vitals have been stable throughout the shift, upon assessing her dressing this RN noted the telfa and tegaderm dressing was covered in sanguineous drainage, this RN changed the dressing and removed the steri strips and cleaned the incision site with normal saline/hydrogen peroxide, new steri strips applied and new telfa and tegaderm dressing placed by this RN. Patient tolerated dressing change well. Patient denies needs at this time.
[2024-07-24] MEDS: OXYCODONE 5MG IMMEDIATE RELEASE TABLET 5 MG PO ×2 (06:04→10:51)
[2024-07-24 06:29] LABS: Basophils % 0.2 % (0.1-2.0); Eosinophils % 0.3 % (0.1-12.0); Hematocrit 35.9 % (37.0-47.0); Hemoglobin 11.9 g/dL (12.2-16.2); Lymphocytes # 1.8 K/mm3 (0.7-4.5); Lymphocytes % 15.3 % (10-50); Mean Corpuscular Hemoglobin 32.8 pg (27.0-31.2); Mean Corpuscular Volume 99.3 fl (81-99); Mean Platelet Volume 7.3 fl (7.4-10.4); Monocytes # 0.8 K/mm3 (0.1-1.0); Monocytes % 6.8 % (1.7-9.3); Neutrophils % 77.4 % (37.0-80.0); Platelet Count 255 K/mm3 (142-424); Red Blood Count 3.62 M/mm3 (4.20-5.40); Red Cell Distribution Width 13.1 % (11.5-17.5); White Blood Count 11.7 K/mm3 (4.8-10.8)
[2024-07-24 06:40] LABS: Anion Gap 8.7 mEq/L (5-15); Blood Urea Nitrogen 4 mg/dl (7-17); Calcium 8.4 mg/dl (8.4-10.2); Carbon Dioxide 25 mmol/L (22.0-30.0); Chloride 107 mmol/L (98-107); Creatinine Clearance Estimated 137 mL/min (50-200); Estimated Glomerular Filt Rate 123 ml/min (>60); GFR (African American) 149 ML/MIN (>60); Glucose 91 mg/dl (74-100); Potassium 3.7 mmoL/L (3.5-5.1); Sodium 137 mmol/L (136-145)
--- NOTE | 2024-07-24 07:39 | P.PNANES_ITS ---
[facility] Anesthesia Record Part II Anesthesia Record Part II Discharge Time: 14:20 Destination: Surgical Day Care (OP Surgery) PACU nurse assessment reviewed?: Yes Patient Condition:: Good Anesthesia Complications:: None Swallowing reflex intact?: Yes Airway Patency: Patent Cyanosis?: No Blood Pressure: 121/84 SaO2: 100 Respiratory Rate: 16 Pulse Rate: 93 Temperature: 97.9 F Mental Status: Alert & Oriented Pain level:: 8 Nausea and/or vomitting:: None Intake, IV Amount: 0 Hydration: Adequate
--- NOTE | 2024-07-24 07:39 | PC.NURSE ---
Dr. Bower in room at this time. Report given. Notified of incision.
[2024-07-24] MEDS: SENNOSIDES 8.6MG/DOCUSATE 50MG TABLET 1 TAB PO (07:50)
[2024-07-24] MEDS: SIMETHICONE 80MG CHEWABLE TABLET 160 MG PO ×2 (08:17→18:12)
[2024-07-24] MEDS: SODIUM CHLORIDE 0.9% 25ML BAG 25 ML IV ×2 (08:23→17:59)
--- NOTE | 2024-07-24 10:09 | EXP.ACUTE.PN ---
Subjective *Date: 07/24/24 *Time: 10:09 Interval history: She is doing well this morning. Her pain is reasonably well-controlled. She is drinking fluids and voiding normally. She has not passed any gas yet but feels like she could. She has been ambulating to go to the bathroom. She denies any shortness of breath or chest pain. Medical Exam Vital signs and Labs for Last 24 Hours: Vital Signs Temp Pulse Pulse Resp BP BP Pulse Ox 07/24/24 09:36 07/24/24 07:45 83 18 107/59 L 97 07/24/24 07:45 97 07/24/24 07:45 07/24/24 07:40 16 07/24/24 05:32 98.1 F 97 H 18 100/47 L 99 07/24/24 05:20 07/24/24 03:28 07/24/24 01:26 07/23/24 23:18 07/23/24 21:34 07/23/24 21:29 97 H 17 109/64 L 97 07/23/24 20:23 98 H 17 125/76 100 07/23/24 20:00 07/23/24 20:00 95 07/23/24 19:29 97.6 F 97 H 18 110/75 95 07/23/24 19:00 07/23/24 18:30 95 H 17 127/77 94 L 07/23/24 17:30 100 H 18 135/78 96 07/23/24 17:00 07/23/24 17:00 84 17 110/72 98 07/23/24 16:30 98.7 F 87 16 118/73 96 07/23/24 16:04 07/23/24 16:00 86 17 105/63 L 97 07/23/24 15:30 82 17 108/66 L 97 07/23/24 15:15 94 H 18 112/65 96 07/23/24 15:00 98.2 F 84 17 114/70 95 07/23/24 14:45 88 16 110/73 95 07/23/24 14:30 07/23/24 14:30 98.0 F 90 16 117/64 96 07/23/24 14:20 97.9 F 93 H 16 121/84 100 07/23/24 14:10 97.9 F 91 H 16 118/74 100 07/23/24 14:00 97.9 F 91 H 16 124/80 100 07/23/24 13:50 97.9 F 91 H 16 126/76 100 07/23/24 13:40 97.9 F 89 16 123/82 99 07/23/24 13:38 97.9 F 107 H 14 102/62 L 07/23/24 13:30 97.9 F 89 16 121/75 99 07/23/24 13:20 97.9 F 91 H 16 131/73 99 07/23/24 13:10 97.9 F 79 16 102/62 L 100 07/23/24 11:46 97.1 F L 87 18 131/70 98 O2 Del Method 07/24/24 09:36 Room Air 07/24/24 07:45 Room Air 07/24/24 07:45 Room Air 07/24/24 07:45 Room Air 07/24/24 07:40 07/24/24 05:32 Room Air 07/24/24 05:20 Room Air 07/24/24 03:28 Room Air 07/24/24 01:26 Room Air 07/23/24 23:18 Room Air 07/23/24 21:34 Room Air 07/23/24 21:29 Room Air 07/23/24 20:23 Room Air 07/23/24 20:00 Room Air 07/23/24 20:00 Room Air 07/23/24 19:29 Room Air 07/23/24 19:00 Room Air 07/23/24 18:30 Room Air 07/23/24 17:30 Room Air 07/23/24 17:00 Room Air 07/23/24 17:00 Room Air 07/23/24 16:30 Room Air 07/23/24 16:04 Room Air 07/23/24 16:00 Room Air 07/23/24 15:30 Room Air 07/23/24 15:15 Room Air 07/23/24 15:00 Room Air 07/23/24 14:45 Room Air 07/23/24 14:30 Room Air 07/23/24 14:30 Room Air 07/23/24 14:20 Room Air 07/23/24 14:10 Room Air 07/23/24 14:00 Room Air 07/23/24 13:50 Room Air 11/25/24 13:40 Room Air 07/23/24 13:38 07/23/24 13:30 Room Air 07/23/24 13:20 Room Air 07/23/24 13:10 Room Air 07/23/24 11:46 Room Air Intake and Output 07/23/24 07/24/24 07/24/24 19:59 03:59 11:59 Intake Total 1100 / 1100 0 / 1100 Output Total 200 / 1500 1300 / 1500 Balance 900 / -400 -1300 / -400 0 / -400 Intake: Intake, Total IV Amount 1100 / 1100 0 / 1100 Output: Output, Urine Amount 200 / 1500 1300 / 1500 Laboratory Results - last 24 hr 07/23/24 12:20: Urine Color Yellow, Urine Appearance Clear, Urine pH 6.5, Ur Specific [place] 1.025, Urine Protein Negative, Urine Glucose (UA) Negative, Urine Ketones Negative, Urine Blood Negative, Urine Nitrate Negative, Urine Bilirubin Negative, Urine Urobilinogen 0.2, Ur Leukocyte Esterase Negative, Urine RBC 3-5, Urine WBC Occasional, Ur Squamous Epith Cells 5-10 07/24/24 06:10: WBC 11.7 H, RBC 3.62 L, Hgb 11.9 L, Hct 35.9 L, MCV 99.3 H, MCH 32.8 H, MCHC 33.0, RDW 13.1, Plt Count 255 D, MPV 7.3 L, Neut % (Auto) 77.4, Lymph % (Auto) 15.3, Graham % (Auto) 6.8, Eos % (Auto) 0.3, Baso % (Auto) 0.2, Neut # (Auto) 9.0 H, Lymph # (Auto) 1.8, Graham # (Auto) 0.8, Eos # (Auto) 0.0, Baso # (Auto) 0.0, Sodium 137, Potassium 3.7, Chloride 107, Carbon Dioxide 25, Anion Gap 8.7, BUN 4 L, Creatinine 0.60, Estimated Creat Clear 137, Estimated GFR 123, Est GFR ( Amer) 149, Glucose 91, Calcium 8.4 I & O for Labs for Last 24 Hours: Intake & Output 07/21/24 07/22/24 07/23/24 07/24/24 11:59 11:59 11:59 11:59 Intake Total 1100 / 1100 Output Total 1500 / 1500 Balance -400 / -400 Head: Present atraumatic Neck: Present normal inspection Respiratory: Present CTA bilaterally; Absent accessory muscle use Cardiac: Present Reg Rate and Rhythm GI: Present soft, tenderness and normal bowel sounds; Absent distention, guarding, rebound or rigidity Comments:: Her incision is clean and dry. Extremities: Present full ROM Assessment and Plan *Assessment and plan (1) Mass of left ovary: Status: Acute Category: Medical Code(s): N83.8 - Other noninflammatory disorders of ovary, fallopian tube and broad ligament (2) Adnexal cyst: Status: Acute Category: Medical Code(s): N94.9 - Unspecified condition associated with female genital organs and menstrual cycle Plan She is doing very well this morning. Her incision is clean and dry. She is getting up to go to the bathroom. She is drinking fluids. She has good bowel sounds. Will try full fluids this morning and see how she does she has not been able to pass any gas but her bowel sounds are normal. If she is doing well we will consider sending her home tomorrow.
[2024-07-24] MEDS: OXYCODONE 5MG IMMEDIATE RELEASE TABLET 10 MG PO ×2 (13:55→20:26)
--- NOTE | 2024-07-24 17:06 | PC.NURSE ---
Reassessment completed at this time. Patient has dealt with pain today. Patient states the IV dilaudid did help the most- but is now d/c by dr. allen. Patient has slept majority of my shift. I have encouraged her to walk multiple times today, and patient states she has walked to and from bathroom. Educated her on importance of this and how this will help her pain. IV infusing. no issues. no edema noted. Low transverse incision noted with dressing on. saturated with dark red blood right side. will change this before my shift ends. lungs cta and bowel sounds active x4. reports passing gas. mother has been at bedside most of the day. call light within reach.
--- NOTE | 2024-07-24 18:15 | PC.NURSE ---
Wound care provided at this time. Education provided. Steristrips in place. Scant red drainage noted to right side of incision. no s/s of infection noted. Patient tolerated this well. Sterile dressing reapplied.
[2024-07-24] MEDS: ONDANSETRON 4MG/2ML VIAL 4 MG IV (18:51)
--- NOTE | 2024-07-24 22:17 | PC.NURSE ---
Patient ambulated two laps around the nursing unit with standby assist before getting back in bed. pt tolerated ambulation well. pt denies needs
[2024-07-25] VITALS: BP 116/68; PULSE 69; RESP 16; TEMP 37.1; O2SAT 97
[2024-07-25] MEDS: KETOROLAC 30MG/ML VIAL 15 MG IV ×2 (00:55→08:29)
[2024-07-25] MEDS: ACETAMINOPHEN 325MG TAB 650 MG PO ×2 (00:55→08:29)
[2024-07-25 03:39] VITALS: BP 107/54; PULSE 73; RESP 14; TEMP 36.9; O2SAT 90
[2024-07-25] MEDS: OXYCODONE 5MG IMMEDIATE RELEASE TABLET 10 MG PO ×2 (04:10→10:04)
--- NOTE | 2024-07-25 04:20 | PC.NURSE ---
Pt resting in bed, pt rates pain 6/10, medication given. See EMAR. pt has rested comfortably throughout shift, pt has ambulated to bathroom and back independently, pt also walked halls of unit on this shift. lung sounds clear throughout bilaterally, bowel sounds active in all quadrants, incision site and dressing dry and intact, small amount of drainage from initial assessment still noted on this reassessment. Pt denies needs at this time and was going back to sleep.
[2024-07-25 08:00] VITALS: BP 121/75; PULSE 69; RESP 16; TEMP 36.7; O2SAT 97
[2024-07-25] MEDS: SENNOSIDES 8.6MG/DOCUSATE 50MG TABLET 1 TAB PO (08:28)
--- NOTE | 2024-07-25 08:57 | P.DS_ITS ---
General Admission date:: 07/23/24 Discharge date: 07/25/24 HPI HPI HPI: She is a 23-year-old 0 para 0 lady who complains of pelvic pain. She had a CT scan that showed a 5 cm cyst. An ultrasound showed a 5 cm mass above the uterus. As result of that she was offered removal of this mass. We thought it might be a pedunculated fibroid because it had a solid appearance. Hospital Course Hospital Course Hospital Course: On July 23 she underwent an ovarian cystectomy. Upon entering the abdominal cavity we could not find evidence of any mass. There was a 5?6 cm simple cyst on the right ovary. This cyst ruptured when me were examining the abdominal cavity. She had a Pfannenstiel incision. She has done well postoperatively and has remained afebrile throughout hospitalization. She is eating and drinking and ambulating. Her pain is reasonably well-controlled with Tylenol, Toradol and oxycodone. She is discharged home to follow-up in 2 weeks time in the office. She will be given a prescription for Percocet 5/325 as well as a prescription for Toradol and Phenergan. She was given the usual instructions with respect to limiting her activity, driving and sexual activity. She was given instructions with respect to wound care. Her condition on discharge is stable and improved. Exam Data for Last 24 hours Vital signs and Labs for Last 24 Hours: Temp Pulse Resp BP Pulse Ox O2 Del Method 98.0 F 69 16 121/75 97 Room Air 07/25/24 08:00 07/25/24 08:00 07/25/24 08:00 07/25/24 08:00 07/25/24 08:00 07/25/24 08:00 I & O for Last 24 hours: Intake & Output 07/22/24 07/23/24 07/24/24 07/25/24 11:59 11:59 11:59 11:59 Intake Total 1100 / 1100 Output Total 1500 / 1500 1200 / 1200 Balance -400 / -400 -1200 / -1200 Constitutional Constitutional: no acute distress *Routine HEENT Exam Head: Present normocephalic *Routine Neck Exam Neck: Present full ROM *Routine Respiratory Exam Respiratory: Present normal respiratory effort; Absent accessory muscle use *Routine Abdominal Exam Abdominal: Present soft and normoactive bowel sounds; Absent tenderness, distended, rebound or guarding Comments: Her incision is clean and dry. DS: Diagnosis Discharge Diagnosis (1) Mass of left ovary: Status: Acute Code(s): N83.8 - Other noninflammatory disorders of ovary, fallopian tube and broad ligament (2) Adnexal cyst: Status: Acute Code(s): N94.9 - Unspecified condition associated with female genital organs and menstrual cycle Meds Home Medications and Allergies Home Medications ?Medication ?Instructions ?Recorded ?Confirmed ?Type vortioxetine 10 mg tablet 10 mg PO DAILY #30 tabs 07/20/24 07/23/24 Rx (Trintellix) mirtazapine 15 mg tablet 15 mg PO HS 07/23/24 07/23/24 History propranolol 10 mg tablet 10 mg PO TIDP PRN Anxiety 07/23/24 07/23/24 History ketorolac 10 mg tablet 10 mg PO Q6H #20 tabs 07/25/24 Rx oxycodone-acetaminophen 5 mg-325 1 tab PO Q6H PRN pain #20 tabs 07/25/24 Rx mg tablet promethazine 25 mg tablet 12.5 mg (1/2 x 25 mg) PO Q6H PRN 07/25/24 Rx Nausea And Vomiting #20 tabs New Prescriptions to Start Prescriptions: ketorolac Evaristo Bower oxycodone-acetaminophen Evaristo Bower promethazine Evaristo Bower Allergies Allergy/AdvReac Type Severity Reaction Status Date / Time No Known Allergies Allergy Verified 06/26/24 11:37 Discharge Plan Disposition Patient Disposition: Home, Self-Care Follow up Plan Prescriptions/Medication Reconciliation: New ketorolac 10 mg Tablet 10 mg PO Q6H Qty: 20 0RF oxycodone-acetaminophen 5-325 mg tablet 1 tab PO Q6H PRN (Reason: pain) Qty: 20 0RF promethazine 25 mg Tablet 12.5 mg PO Q6H PRN (Reason: Nausea And Vomiting) Qty: 20 0RF No Action Trintellix 10 mg tablet 10 mg PO DAILY Qty: 30 1RF propranolol 10 mg tablet 10 mg PO TIDP PRN (Reason: Anxiety) mirtazapine 15 mg tablet 15 mg PO HS Problem Reconciliation Problems Reviewed?: Yes Patient Discharge Instructions ACTIVITY: No heavy lifting DIET: continue same diet Print Language: Greenlandic Providers Primary Care Provider: Andre Cook Admit Provider: Evaristo Bower Attending Provider: Evaristo Bower
[2024-07-25] MEDS: PROMETHAZINE HCL 25MG/ML 1ML VIAL 12.5 MG IV (10:04)
[2024-07-25] MEDS: SODIUM CHLORIDE 0.9% 25ML BAG 25 ML IV (10:04)
--- NOTE | 2024-07-25 13:08 | EXP.HP ---
History of Present Illness *Admission Date: 07/23/24 *Reason for visit:: Ovarian mass, pelvic pain, *History of present illness: She is a 23-year-old 0 para 0 lady who complains of pelvic pain. She had a CT scan that showed a 5 cm cyst. An ultrasound showed a 5 cm mass above the uterus. As result of that she was offered removal of this mass. We thought it might be a pedunculated fibroid because it had a solid appearance. [facility] Disclaimer: The information contained in this section may have been updated after the patient was seen, as this information can be updated by other users. Medical History Generalized anxiety disorder Attention deficit disorder (ADD) in adult Surgical History Hx of wisdom tooth extraction Hx of tonsillectomy Family History Family history of diabetes mellitus Hypertension Social History Smoking Status: Current every day smoker tobacco type: e-cigarettes alcohol intake: never substance use type: marijuana current occupational status: unemployed and other number of children: 0 Other Medical History Have you received the Flu Vaccine for this season: No Have you received the Pneumonia Vaccine: No Review of Systems Review of Systems Review of systems:: pertinent systems reviewed and negative unless documented below Meds Home Medications and Allergies Home Medications ?Medication ?Instructions ?Recorded ?Confirmed ?Type vortioxetine 10 mg tablet 10 mg PO DAILY #30 tabs 07/20/24 07/23/24 Rx (Trintellix) mirtazapine 15 mg tablet 15 mg PO HS 07/23/24 07/23/24 History propranolol 10 mg tablet 10 mg PO TIDP PRN Anxiety 07/23/24 07/23/24 History ketorolac 10 mg tablet 10 mg PO Q6H #20 tabs 07/25/24 Rx oxycodone-acetaminophen 5 mg-325 1 tab PO Q6H PRN pain #20 tabs 07/25/24 Rx mg tablet oxycodone-acetaminophen 5 mg-325 1 tab PO Q6H PRN pain #20 tabs 07/25/24 Rx mg tablet promethazine 25 mg tablet 12.5 mg (1/2 x 25 mg) PO Q6H PRN 07/25/24 Rx Nausea And Vomiting #20 tabs New Prescriptions to Start Prescriptions: ketorolac Hao Bowerk oxycodone-acetaminophen Bower,Evaristo oxycodone-acetaminophen Bower,Evaristo promethazine Bower,Evaristo Allergies Allergy/AdvReac Type Severity Reaction Status Date / Time No Known Allergies Allergy Verified 06/26/24 11:37 Exam Data for Last 24 hours Vital signs and Labs for Last 24 Hours: Temp Pulse Resp BP Pulse Ox O2 Del Method 98.0 F 69 16 121/75 97 Room Air 07/25/24 08:00 07/25/24 08:00 07/25/24 08:00 07/25/24 08:00 07/25/24 08:00 07/25/24 13:06 I & O for Last 24 hours: Intake & Output 07/23/24 07/24/24 07/25/24 07/26/24 11:59 11:59 11:59 11:59 Intake Total 1100 / 1100 Output Total 1500 / 1500 1200 / 1200 Balance -400 / -400 -1200 / -1200 Constitutional Constitutional: no acute distress *Routine HEENT Exam Head: Present normocephalic Eye: Present EOMI and PERRL ENT: Present mucous membranes moist *Routine Neck Exam Neck: Present supple; Absent lymphadenopathy *Routine Respiratory Exam Respiratory: Present CTA bilaterally *Routine Cardiovascular Exam Cardiovascular: Present RRR *Routine Abdominal Exam Abdominal: Present soft and normoactive bowel sounds; Absent tenderness *Routine Rectal Exam Rectal:: deferred *Routine Genitalia Exam Genitalia:: deferred *Routine Extremities Exam Extremities: Absent cyanosis, clubbing or edema *Routine Skin Exam Skin: Present warm; Absent rash *Routine Neurological Exam Neurological: Present alert and oriented X3 Assessment and Plan *Assessment and plan (1) Mass of left ovary: Status: Acute Category: Medical Code(s): N83.8 - Other noninflammatory disorders of ovary, fallopian tube and broad ligament (2) Adnexal cyst: Status: Acute Category: Medical Code(s): N94.9 - Unspecified condition associated with female genital organs and menstrual cycle (3) Pelvic pain: Status: Acute Category: Medical Code(s): R10.2 - Pelvic and perineal pain Plan We discussed the various options as and since this mass looks solid on ultrasound we elected perform a laparotomy through a Pfannenstiel incision. We discussed laparoscopy but since this mass. Solid we felt that we would probably still have to take the mass out with a small Pfannenstiel incision so after having discussed this with the patient and her mother we like to perform a laparotomy.
== END 2024-07-25 13:44 | disposition home or self-care (01) ==
LOC: OB 12:19
PROVIDERS: Admitting Provider Nurse Practitioner Obstetrics & Gynecology; PCP Family Medicine; Visit Provider Nurse Practitioner Obstetrics & Gynecology
PROC: 0UB00ZZ Excision of Right Ovary, Open Approach (ICD-10-PCS; CPT 58925; principal; 2024-07-23 11:50)
DX: N83.8 Other noninflammatory disorders of ovary, fallopian tube and broad ligament (principal); N94.9 Unspecified condition associated with female genital organs and menstrual cycle; R10.2 Pelvic and perineal pain; N83.201 Unspecified ovarian cyst, right side
CPT/HCPCS: 58925; 36415; 80048; 81001; 85025; J3490; C9144; G0378; J0690; J1100; J1171; J1885; J2250; J2270; J2405; J2550; J3010; J7030; J7120

== ENCOUNTER 2025-03-08 10:47 | Outpatient (CLI) | payer BC, OTHER, SELFPAY ==
--- OUTSIDE RECORDS SUMMARY | 2025-03-08 10:52 | XMS_ITS | Clinical Summary ---
Author Organization Healthcare Address [address] [place] [address] Care Team Providers Care Bingo Worker Name Role Phone Thaddeus Casanova MD Primary Care Provider [phone] Family History Medical History Relation Name Comments Hypertension Maternal Grandmother Relation Name Status Comments Maternal Grandmother Social History Tobacco Use Types Packs/Day Years Used Date Smoking Tobacco: Never Alcohol Use Standard Drinks/Week Comments No 0 (1 standard drink = 0.6 oz pure alcohol) Alcoholic Drinks/day: Never Drank Alcohol Comments Unknown Sex and Gender Information Value Date Recorded Sex Assigned at Not on file Legal Sex Female 8:04 PM EDT Gender Identity Not on file Sexual Orientation Not on file Last Filed Vital Signs Vital Sign Reading Time Taken Comments Blood Pressure 118/68 10/24/2017 2:18 PM EST Pulse 61 10/24/2017 2:18 PM EST Temperature - - Respiratory Rate 16 10/24/2017 2:18 PM EST Oxygen Saturation - - Inhaled Oxygen Concentration - - Weight 56 kg (123 lb 7.3 oz) 10/24/2017 2:18 PM EST Height 164.5 cm (5' 4.76 ) 10/24/2017 2:18 PM ES T Body Mass Index 20.69 10/24/2017 2:18 PM EST Plan of Treatment Not on file Care Teams Bingo Worker Relationship Specialty Start Date End Date Thaddeus Casanova MD [facility] [place] [address] PCP - General 01/09/21
[2025-03-08 11:50] LABS: Free Thyroxine Index 1.9 ug/dL (5.93-13.13); T4 (Thyroxine) 5.7 ug/dl (5.53-11.0); Triiodothryronine (T3) Uptake 33 % (23.5-40.5)
[2025-03-08 12:02] LABS: Thyroid Stimulating Hormone 0.39 uIU/mL (0.465-4.68)
[2025-03-08 12:03] LABS: Thyroid Stimulating Hormone 0.40 uIU/mL (0.465-4.68)
[2025-03-09 12:11] LABS: Cortisol,AM 6.6 ug/dL (6.2-19.4)
== END 2025-03-08 23:59 | disposition home or self-care (01) ==
LOC: LAB 10:48
PROVIDERS: PCP Family Medicine
DX: T50.B95A Adverse effect of other viral vaccines, initial encounter (principal); R53.83 Other fatigue
CPT/HCPCS: 36415; 82533; 84436; 84443; 84479

== ENCOUNTER 2025-04-30 10:43 | Outpatient (CLI) | payer BC, OTHER, SELFPAY ==
--- OUTSIDE RECORDS SUMMARY | 2025-05-01 10:42 | XMS_ITS | Clinical Summary ---
Author Organization [facility] Address [address] [place] [address] Care Team Providers Care Employee Development Specialist Name Role Phone Thaddeus Casanova MD Primary Care Provider +1- [phone] Allergies No known active allergies Medications No known medications Active Problems No known active problems Family History Medical History Relation Name Comments No Known Problems Brother Migraines Father Diabetes Maternal Grandfather Heart disease Maternal Grandfather Hypertension Maternal Grandmother Anxiety disorder Mother Relation Name Status Comments Brother Alive Father Alive Maternal Grandfather Alive Maternal Grandmother Alive Mother Alive Paternal Grandfather Alive Paternal Grandmother Alive Social History Tobacco Use Types Packs/Day Years Used Date Smoking Tobacco: Never Smokeless Tobacco: Never Alcohol Use Standard Drinks/Week Comments No 0 (1 standard drink = 0.6 oz pur e alcohol) Abuse Screen Answer Date Recorded Unsafe at Home or Work/School Not on file Feels Threatened by Someone? Not on file 06/2023 Does Anyone Keep You from Co ntacting Others or Doint Things Outside the Home? Not on file 06/08/2023 Physical Sign of Abuse Present Not on file 1 Housing Stability Answer Date Recorded Current Living Arrangements Not on file 05/29 Potentially Unsafe Housing Conditions Not on brynn e 06/08/2023 Family and Community Support Answer Chandler e Recorded Help with Day-to-Day Activities Not on file 06/08/2023 Lonely or Isolated Not on file 06/08/2023 Employment Answer Date Recorded Do you want help finding or keeping work or a maribel b? Not on file 06/08/2023 Disabilities Answer Date Recorded Concentrating, Remembering, or Making Decisions Difficulty Not on file 06/08/2023 Doing Errands Independently Difficulty Not on fi le 06/08/2023 Education Answer Date Recorded Help with school or training? Not on file Preferred Language Not on file 06/08/2023 Comments No Sex and Gender Information Value Date Recorded Sex Assigned at Not on file Legal Sex Female 12:31 PM EST Gender Identity Not on file Sexual Orientation Not on file Last Filed Vital Signs Vital Sign Reading Time Taken Comments Blood Pressure - - Pulse 95 12/07/2016 1:09 PM EDT Temperature 36.8 C (98.3 F) 12/07/2016 1:09 PM EDT Respiratory Rate 20 12/07/2016 1:09 PM EDT Oxygen Saturation 98% 12/07/2016 1:09 PM EDT Inhaled Oxygen Concentration - - Weight 56.2 kg (124 lb) 12/07/2016 1:09 PM EDT Height 162.6 cm (5' 4 ) 12/07/2016 1:09 PM EDT Body Mass Index 21.28 12/07/2016 1:09 PM EDT Plan of Treatment Health Maintenance Due Date Last Done Comments Annual Gynecologic Pelvic an d Breast Exam 1999 HPV VACCINES (1 - 3-dose series) 2014 ANNUAL PHYSICAL 12/07/2016 HEPATITIS C SCREENING 12/07/2016 TDAP/TD VACCINES (1 - Tdap) 2018 COVID-19 Vaccine ( - 2023-2 5 season) 2024 INFLUENZA VACCINE 05/29/2025 Pneumococcal Vaccine 0-49 Aged Out No longer eligible based on patient's age to complete this topic Care Teams Employee Development Specialist Relationship Specialty Start Date End Date Thaddeus Casanova MD [address] [place] [address] PCP - General Pediatrics 07/29/16
--- OUTSIDE RECORDS SUMMARY | 2025-05-01 10:42 | XMS_ITS | Clinical Summary ---
Author Organization [facility] Address [address] [place] [address] Care Team Providers Care Key Account Manager Name Role Phone Thaddeus Casanova MD Primary Care Provider [phone]- [phone] Family History Medical History Relation Name Comments [...] of Treatment Not on file Care Teams Key Account Manager Relationship Specialty Start Date End Date Thaddeus Casanova MD [facility] [place] [address] PCP - General 01/09/21
== END 2025-04-30 23:59 | disposition home or self-care (01) ==
LOC: LAB.DROPOF 05-01 10:40
PROVIDERS: PCP Obstetrics & Gynecology; Visit Provider Obstetrics & Gynecology
DX: N39.0 Urinary tract infection, site not specified (principal); N83.8 Other noninflammatory disorders of ovary, fallopian tube and broad ligament; R53.83 Other fatigue
CPT/HCPCS: 87086; 87088; 87186; 87491; 87529; 87591; 87661; 87798; 87801

== ENCOUNTER 2025-07-02 13:41 | Outpatient (CLI) | payer BC, OTHER, SELFPAY ==
--- OUTSIDE RECORDS SUMMARY | 2025-04-30 11:30 | XMS_ITS ---
Author Organization [facility] Address [address] [facility] [address] [place] [id number] Care Team Providers Care Kiln Charger Name Role Phone Elisa Cook Primary Care Provider Shayan Bernstein Unavailable [phone] Allergies No Known Allergies REASON FOR VISIT cortisol levels Medications Medication SIG (Take, Route, Frequency, Duration) Notes Start Date End Date Status Trintellix 5 MG 1 tab(s) orally once a day; Duration: 30 day(s) Unknown Omeprazole 40 MG 1 cap(s) orally once a day Active Mirtazapine 30 MG 1 tablet at bedtime Orally Once a day Active Vilazodone HCl 10 MG 1 tablet with food Orally Once a day Active Dextroamphetamine Sulfate ER 10 MG 1 capsule in the morning Orally Once a day Active methylPREDNISolone 4 MG as directed 11/25/2022 Not-Taking Albuterol Sulfate HFA 108 (90 Base) MCG/ACT 2 puff(s) inhaled Four times a day 11/25/2022 Active Promethazine HCl 6.25 MG/5ML 10 ml orall y q6h prn cough 11/25/2022 Not-Taking Social History Tobacco Use: Social History Observation Description Date Details (start date - stop date) Current Smoker NA - NA CURRENT TOBACCO USE: Question Answer Notes Are you a: current smoker How often do you smoke cigarettes? some days, bu t not every day Vital Signs Weight 128 lbs 04/30/2025 Blood pressure systolic 128 mm Hg 04/30/20 25 Blood pressure diastolic 68 mm Hg 025 Heart Rate 79 /min 04/30/2025 Height 65 in 04/30/2025 BMI 21.3 kg/m2 04/30/2025 Encounters Encounter Location Date Provider Diagnosis [facility] [address] [facility] [address] [place] [id number] 04/30/2025 Elisa Cook Depression with anxiety F41.8 and BMI 21.0-21.9, adult Z68.21 Assessments Encounter Date Diagnosis (ICD Code) Assessment Notes Treatment Notes Treatment Clinical Notes Section Notes 04/30/2025 Depression with anxiety (ICD-10 - F41.8) Reassured patient results of labs, none of which are actionable. She should continue follow-up with Chelsey Hernandez APRN 04/30/2025 BMI 21.0-21.9, adult (ICD-10 - Z68.21) Plan Of Treatment Treatment Notes Assessment Notes Depression with anxiety Reassured patien t results of labs, none of which are actionable. She should continue follow-up with Chelsey Hernandez APRN Next Appt Details Follow Up: prn, Reason: Progress Notes * RON TANB: 9 (24 yo F)Acc No.[id number]:04/30/2025 Progress Notes Patient: SOUMYA CARTER Provider: Elisa Cook M.D. :2000 A ge:24 Y S ex:Female Date:04/30/2025 Address:[address] [place] [address] Wilian REA [id number] Subjective: * Chief Complaints: * 1 . Cortisol levels. * HPI: P sychology: P t follows with Chelsey Hernandez at [facility] behavioral health and had recent labs done including thyroid profile and AM cortisol level and was referred here to review the results. Please refer to copies in chart. Note that the cortisol level was drawn at 10:50 AM. * ROS: D ERMATOLOGY: no R alli. n o H gautam. G ASTROENTEROLOGY: no N ausea. n o V omiting. n o D iarrhea.? U ROLOGY: no D ifficulty urinating. n o B lood in urine. * Medical History: V asovagal syncope-Dr Del Toro-released from care 09/2017, GERD, Anxiety disorder. * Surgical History: w isdom teeth removed , tonsilectomy . * Family History: F ather: alive 52 yrs, migraines. M other: alive 51 yrs, anxiety. 1 brother(s) . .? * Social History: C URRENT TOBACCO USE: Yes A re you a: c urrent smoker, H ow often do you smoke cigarettes? s ome days, but not every day. C affeine: yes, frequency: soda on occasion. Home smoke detector use: yes. Recreational drug use: marijuana mostly on the weekends. Alcohol: No. * Medications: T aking Dextroamphetamine Sulfate ER 10 MG Capsule Extended Release 24 Hour 1 capsule in the morning Orally Once a day , Taking Vilazodone HCl 10 MG Tablet 1 tablet with food Orally Once a day , Taking Mirtazapine 30 MG Tablet 1 tablet at bedtime Orally Once a day , Taking Omeprazole 40 MG Capsule Delayed Release 1 cap(s) orally once a day , Taking Albuterol Sulfate HFA 108 (90 Base) MCG/ACT Aerosol Solution 2 puff(s) inhaled Four times a day , Not-Taking methylPREDNISolone 4 MG Tablet Therapy Pack as directed , Not-Taking Promethazine HCl 6.25 MG/5ML Syrup 10 ml orally q6h prn cough , Unknown Trintellix 5 MG Tablet 1 tab(s) orally once a day , Medication List reviewed and reconciled with the patient * Allergies: N .K.D.A. Objective: * Vitals: W t: 128, Temp: 98.5, BP: 128/68, HR: 79, Nurse: KALEIGH, Ht: 65, BMI:21.3. * Examination: G eneral Examination: L abs reviewed with patient and her mother. Her cortisol level is in the normal range. T3 and T4 are normal. TSH is barely subtherapeutic. Assessment: * Assessment: 1. D epression with anxiety - F41.8 (Primary) 2 . B IA 21.0-21.9, adult - Z68.21 Plan: * Treatment: * Procedure Codes: 3 074F SYST BP LT 130 MM HG, 3078F DIAST BP < 80 MM HG * Follow Up: p donnie * Images: Billing Information: * Visit Code: 74774 Office Visit, Est Pt., Level 3. * Procedure Codes: 3074F SYST BP LT 130 MM HG. 3078F DIAST BP < 80 MM HG. * Electronic signature of Elisa Cook MD on 07/04/2025 at 01:48 PM EST Sign off status: Pending * Provider: Elisa Cook M.D. Date: 0 04/30/2025 Generated for Steven cardoso/Rene/Kate on: 1 09/03/2024 01:48 PM EST History and Physical Notes * Examination Category Sub-Category Detail Notes Category Not es General Examination Labs rev iewed with patient and her mother. Her cortisol level is in the normal range. T3 and T4 are normal. TSH is barely subtherapeutic.
[2025-07-02 14:55] LABS: Coronavirus 19, PCR Not Detected (NotDetected); Influenza A, PCR Not Detected (NotDetected); Influenza B, PCR Not Detected (NotDetected)
--- OUTSIDE RECORDS SUMMARY | 2025-07-04 13:48 | XMS_ITS | Patient Health Record ---
[facility] [address] [facility] [address] [place] [id number] Care Team Providers Care Tyre Retreader Name Role Phone Elisa Cook Primary Care Provider Shayan Bernstein Unavailable [phone] Allergies No Known Allergies Reason For Referral No Information Medications Medication SIG (Take, Route, Frequency, Duration) [...] orall y q6h prn cough 11/25/2022 Not-Taking Immunizations Vaccine Route Administration Date Status Comme nts Hepatitis A (adult) IM Intramuscular 08/02/2018 Administer ed Social History Tobacco Use: Social History Observation Description Date Details (start date - stop date) Current Smoker NA - NA CURRENT TOBACCO USE: Question Answer Notes Are you a: current smoker How often do you smoke cigarettes? some days, bu t not every day Problems Problem Type SNOMED Code ICD Code Onset Dates Problem Status W/U Status Risk Notes Problem Mixed anxiety and depressive disorder (743668213) Depression with anxiety (F41.8) Active confirmed Problem Intermenstrual bleeding - irregular (25489862) Menorrhagia with irregular cycle (N92.1) Active confirmed Problem Generalized anxiety disorder (55905738) Generalized anxiety disorder (F41.1) Active confirmed Problem Gastroesophageal reflux disease (167586377) Gastroesophageal reflux disease, esophagitis presence not specified (K21.9) Active confirmed Problem Atrophic gastritis (30245301) Chronic gastritis without bleeding, unspecified gastritis type (K29.50) Active confirmed Problem Cannabis dependence (56853508) Marijuana dependence (F12.20) Active confirmed Vital Signs Heart Rate 79 /min 04/30/2025 Blood pressure diastolic 68 mm Hg 04/30/2025 Height 65 in 04/30/2025 Blood pressure systolic 128 mm Hg 04/30/2025 Weight 128 lbs 04/30/2025 BMI 21.3 kg/m2 04/30/2025 Encounters Encounter Location Date Provider [facility] [address] [place] [id number] 04/30/2025 Elisa Cook Depression with anxiety F41.8 and BMI 21.0-21.9, adult Z68.21 [facility] [address] [place] [id number] 01/09/2025 Elisa Cook Assessments Encounter Date Diagnosis (ICD Code) Assessment Notes Treatment Notes Treatment Clinical Notes Section Notes 04/30/2025 Depression with anxiety (ICD-10 - F41.8) Reassured patient results of labs, none of which are actionable. She should continue follow-up with Chelsey Hernandez APRN 04/30/2025 BMI 21.0-21.9, adult (ICD-10 - Z68.21) Plan Of Treatment Pending Test Test Name Order Date Iron 06/05/2021 TSH 06/05/2021 LIVER 06/05/2021 VITAMIN B12 06/05/2021 CBC 06/05/2021 Insurance Providers Payer Name Payer Address Payer Phone Subscriber Number Group Number Insured Name Patient Relationship to Insured Coverage Start Date Coverage End Date [employer] [address] [place] [address] [phone] [id number] Laron Correia Child - Insured has Financial Responsibility [facility] [address] [place], [place] [id number] Laron Correia Child - Insured has Financial Responsibility Medical (General) History Medical History History ICD Code Vasovagal syncope-Dr Del Toro-released f [facility] 09/2017 GERD Anxiety disorder Surgical History Surgery Date(Month/Year) wisdom teeth removed tonsilectomy
--- OUTSIDE RECORDS SUMMARY | 2025-07-04 13:48 | XMS_ITS | Clinical Summary ---
Author Organization [facility] Address [address] [place] [address] Care Team Providers Care High School Foreign Language Teacher Name Role Phone Thaddeus Casanova MD Primary Care Provider [phone]- [phone] Allergies No known active allergies Medications No [...] 12/07/2016 TDAP/TD VACCINES (1 - Tdap) 2018 INFLUENZA VACCINE 03/29/2025 Pneumococcal Vaccine 0-49 Aged Out No longer eligible based on patient's age to complete this topic Care Teams High School Foreign Language Teacher Relationship Specialty Start Date End Date Thaddeus Casanova MD [address] [place] [address] PCP - General Pediatrics 07/29/16
--- OUTSIDE RECORDS SUMMARY | 2025-07-04 13:48 | XMS_ITS | Clinical Summary ---
Author Organization [facility] Address [address] [place] [place] [address] Care Team Providers Care Cnc Operator Machinist Name Role Phone Thaddeus Casanova MD Primary Care Provider [phone]- [phone] Family History Medical History Relation Name Comments [...] of Treatment Not on file Care Teams Cnc Operator Machinist Relationship Specialty Start Date End Date Thaddeus Casanova MD [facility] [place] [address] PCP - General 01/09/21
== END 2025-07-02 23:59 | disposition home or self-care (01) ==
LOC: LAB.DROPOF 07-04 13:41
PROVIDERS: PCP Family Medicine; Visit Provider Nurse Practitioner
DX: J06.9 Acute upper respiratory infection, unspecified (principal)
CPT/HCPCS: 87631

== ENCOUNTER 2025-08-01 11:52 | Outpatient (CLI) | payer BC, OTHER, SELFPAY ==
--- OUTSIDE RECORDS SUMMARY | 2025-08-01 12:05 | XMS_ITS | Patient Health Record ---
Author Organization [facility] [address] [facility] [address] [place] [phone] Care Team Providers Care Supervisor Component Assembler Name Role Phone Elisa Cook Primary Care Provider Shayan Bernstein Unavailable [phone] Allergies No Known Allergies Reason For Referral [...] Notes Problem Mixed anxiety and depressive disorder (386730156) Depression with anxiety (F41.8) Active confirmed Problem Intermenstrual bleeding - irregular (12174730) Menorrhagia with irregular cycle (N92.1) Active confirmed Problem Generalized anxiety disorder (15367515) Generalized anxiety disorder (F41.1) Active confirmed Problem Gastroesophageal reflux disease (071373869) Gastroesophageal reflux disease, esophagitis presence not specified (K21.9) Active confirmed Problem Atrophic gastritis (67746404) Chronic gastritis without bleeding, unspecified gastritis type (K29.50) Active confirmed Problem Cannabis dependence (11182277) Marijuana dependence (F12.20) Active confirmed Vital Signs Heart Rate 79 /min 04/30/2025 Blood pressure diastolic 68 mm Hg 04/30/2025 Height 65 in 04/30/2025 Blood pressure systolic 128 mm Hg 04/30/2025 Weight 128 lbs 04/30/2025 BMI 21.3 kg/m2 04/30/2025 Encounters Encounter Location Date [facility] [address] [place] [id number] 04/30/2025 Elisa Cook Depression with anxiety F41.8 and BMI 21.0-21.9, adult Z68.21 [facility] [address] [place] [id number] 01/09/2025 Elisa Cook Assessments Encounter Date Diagnosis [...] [employer] [address] [place] [address] [id number] Laron Correia Child - Insured has Financial Responsibility [facility] [address] [place], [place] [id number] Laron Correia Child - Insured has Financial Responsibility Medical (General) History Medical History History ICD Code Vasovagal syncope-Dr Del Toro-released f [facility] 09/2017 GERD Anxiety disorder Surgical History Surgery Date(Month/Year) wisdom teeth removed tonsilectomy
--- OUTSIDE RECORDS SUMMARY | 2025-08-01 12:05 | XMS_ITS | Clinical Summary ---
Author Organization [facility] Address [address] [place] [address] Care Team Providers Care Plastic Mould Maker Name Role Phone Thaddeus Casanova MD Primary Care Provider +1- [phone] Family History Medical History Relation Name Comments [...] of Treatment Not on file Care Teams Plastic Mould Maker Relationship Specialty Start Date End Date Thaddeus Casanova MD [facility] [place] [address] PCP - General 01/09/21
--- OUTSIDE RECORDS SUMMARY | 2025-08-01 12:05 | XMS_ITS | Clinical Summary ---
Author Organization [facility] Address [address] [place] [address] Care Team Providers Care Burner Hand Name Role Phone Thaddeus Casanova MD Primary Care Provider Lulu vailable Allergies No known active allergies Medications No [...] age to complete this topic Care Teams Burner Hand Relationship Specialty Start Date End Date Thaddeus Casanova MD PCP - General Pediatrics 07/29/16
== END 2025-08-01 23:59 | disposition home or self-care (01) ==
LOC: LAB 11:53
PROVIDERS: PCP Family Medicine; Visit Provider Obstetrics & Gynecology
DX: Z34.90 Encounter for supervision of normal pregnancy, unspecified, unspecified trimester (principal); Z3A.00 Weeks of gestation of pregnancy not specified
CPT/HCPCS: 36415; 84144; 84702

== ENCOUNTER 2025-08-17 10:01 | Emergency (ER) | payer BC, OTHER, SELFPAY ==
--- OUTSIDE RECORDS SUMMARY | 2025-04-30 11:30 | XMS_ITS ---
Author Organization [facility] Address [address] [facility] [address] [place] [id number] Care Team Providers Care Copywriting Intern Name Role Phone Elisa Cook Primary Care Provider Shayan Bernstein Unavailable [phone] Allergies No Known Allergies REASON FOR VISIT [...] bu t not every day Vital Signs Blood pressure systolic 128 mm Hg 04/30/20 25 Blood pressure diastolic 68 mm Hg 025 Heart Rate 79 /min 04/30/2025 Height 65 in 04/30/2025 Weight 128 lbs 04/30/2025 BMI 21.3 kg/m2 04/30/2025 Encounters Encounter Location Date Provider Diagnosis [facility] [address] [facility] [address] [place] [phone] 04/30/2025 Elisa Cook Depression with anxiety F41.8 [...] Reason: Progress Notes * RON TANB: 9 (25 yo F)Acc No.[id number]:04/30/2025 Progress Notes Patient: SOUMYA CARTER Provider: Elisa Cook M.D. :2000 A ge:24 Y S ex:Female Date:04/30/2025 Address:[address] [place] [address] Wilian REA [id number] Subjective: * Chief Complaints: * 1 . Cortisol levels. * HPI: P sychology: P t follows with Chelsey Hernandez at [facility] behavioral health and had recent labs [...] anxiety - F41.8 (Primary) 2 . B MD 21.0-21.9, adult - Z68.21 Plan: * Treatment: * Procedure Codes: 3 074F SYST BP LT 130 MM HG, 3078F DIAST BP < 80 MM HG * Follow Up: p donnie * Images: Billing Information: * Visit Code: 23968 Office Visit, Est Pt., Level 3. * Procedure Codes: 3074F SYST BP LT 130 MM HG. 3078F DIAST BP < 80 MM HG. * Electronic signature of Elisa Cook MD on 2025 at 10:12 AM EST Sign off status: Pending * Provider: Elisa Cook M.D. Date: 0 04/30/2025 Generated for Steven cardoso/Rene/Kate on: 1 10/18/2024 10:12 AM EST History and Physical Notes * Examination Category Sub-Category Detail Notes Category Not es General Examination Labs rev iewed with patient and her mother. Her cortisol level is in the normal range. T3 and T4 are normal. TSH is barely subtherapeutic.
[2025-08-17] VITALS (9 sets, daily range): BP systolic 110–146; BP diastolic 69–85; PULSE 84–113; RESP 16; TEMP 36.6–36.7; O2SAT 87–100; BMI 20.6
--- OUTSIDE RECORDS SUMMARY | 2025-08-17 10:12 | XMS_ITS | Clinical Summary ---
Author Organization [facility] Address [address] [place] [address] Care Team Providers Care Gi Technician Name Role Phone Thaddeus Casanova MD Primary Care Provider +1- [phone] Family History Medical History Relation Name Comments [...] of Treatment Not on file Care Teams Gi Technician Relationship Specialty Start Date End Date Thaddeus Casanova MD [facility] [place] [address] PCP - General 01/09/21
--- OUTSIDE RECORDS SUMMARY | 2025-08-17 10:12 | XMS_ITS | Patient Health Record ---
[facility] [facility] [address] [place] [phone] Care Team Providers Care Elevator Operator Freight Name Role Phone Elisa Cook Primary Care Provider Shayan Benrstein Unavailable [phone] Allergies No Known Allergies Reason For Referral [...] Notes Problem Mixed anxiety and depressive disorder (456265625) Depression with anxiety (F41.8) Active confirmed Problem Intermenstrual bleeding - irregular (11184511) Menorrhagia with irregular cycle (N92.1) Active confirmed Problem Generalized anxiety disorder (50659062) Generalized anxiety disorder (F41.1) Active confirmed Problem Gastroesophageal reflux disease (091497331) Gastroesophageal reflux disease, esophagitis presence not specified (K21.9) Active confirmed Problem Atrophic gastritis (74591188) Chronic gastritis without bleeding, unspecified gastritis type (K29.50) Active confirmed Problem Cannabis dependence (50976376) Marijuana dependence (F12.20) Active confirmed Vital Signs Heart Rate 79 /min 04/30/2025 Blood pressure diastolic 68 mm Hg 04/30/2025 Height 65 in 04/30/2025 Blood pressure systolic 128 mm Hg 04/30/2025 Weight 128 lbs 04/30/2025 BMI 21.3 kg/m2 04/30/2025 Encounters Encounter Location Date Provider [facility] [address] [place] [id number] 04/30/2025 Elisa Cook Depression with anxiety F41.8 and BMI 21.0-21.9, adult Z68.21 [facility] [facility] [address] [place] [id number] 01/09/2025 Elisa Cook Assessments Encounter Date Diagnosis [...] Insured Coverage Start Date Coverage End Date [employer] [address] [place] [address] [id number] Laron Correia Child - Insured has Financial Responsibility [facility] [address] [place], [place] [id number] Laron Correia Child - Insured has Financial Responsibility Medical (General) History Medical History History ICD Code Vasovagal syncope-Dr Del Toro-released f [facility] 09/2017 GERD Anxiety disorder Surgical History Surgery Date(Month/Year) wisdom teeth removed tonsilectomy
--- OUTSIDE RECORDS SUMMARY | 2025-08-17 10:12 | XMS_ITS | Clinical Summary ---
Author Organization [facility] Address [address] [place] [address] Care Team Providers Care Infrastructure Consultant Name Role Phone Thaddeus Casanova MD Primary [...] age to complete this topic Care Teams Infrastructure Consultant Relationship Specialty Start Date End Date Thaddeus Casanova MD PCP - General Pediatrics 07/29/16
[2025-08-17 10:14] LABS: Microscopic, Urine URINE MICROSCOPIC (MICROSCOPIC)
--- NOTE | 2025-08-17 10:15 | ED_ITS ---
Discharge Plan Disposition Patient Disposition: Home, Self-Care Condition: Good Prescriptions Prescriptions: No Action ondansetron 4 mg tablet,disintegrating 4 mg PO Q8H PRN (Reason: nausea and vomiting) Qty: 60 0RF duloxetine 60 mg capsule,delayed release(DR/EC) 60 mg PO DAILY Qty: 90 3RF nitrofurantoin macrocrystal 100 mg capsule 100 mg PO BID Qty: 10 0RF Rx Instructions: Take 1 capsule by mouth twice daily for 5 days. duloxetine 30 mg capsule,delayed release(DR/EC) 30 mg PO DAILY Qty: 30 2RF promethazine 12.5 mg tablet 12.5 mg PO TID PRN (Reason: Nausea and/or vomiting) Qty: 90 0RF Rx Instructions: 3 doses during day; last dose no later than 4 hr before bedtime Referrals Follow up/Referrals: Andre Cook MD [Primary Care Provider, Medical] - See instructions Activity Restrictions/Add. Instructions Additional Instructions/Restrictions: Please continue taking your prescribed Phenergan and Macrobid. Please follow-up with [employer] AIDE. Return to the ER with any worsening or concerning symptoms. Thank you for allowing us to care for you. Clinical Impressions Clinical Impression: Vomiting during Instructions Patient Instructions: Nausea of (Alternative Therapy) Print Language Print Language: Kyrgyz Discharge ED Provider: Nayan Potts JR General Adult HPI General Chief complaint: Nausea/Vomiting/Diarrhea Stated complaint: 5 wks AP, vomiting, freq urination Time Seen by Provider: 08/17/25 10:08 History of Present Illness HPI narrative: 25-year-old female currently 5 weeks , first , presents to the ED for evaluation of 1 week of nausea, vomiting. Has first OB appointment in 2 weeks. No vaginal bleeding, abdominal pain, or vaginal discharge. No cramping. Patient believes she may have a UTI. She is currently on Macrobid but has had difficulty keeping it down secondary to nausea and vomiting. Was prescribed Phenergan by her [employer] WORK PROGRAM AIDE. No other complaints or issues. Arrives afebrile, stable, over well-appearing. Denies any concern for STDs. Related Data Previous Rx's ?Medication ?Instructions ?Recorded ondansetron 4 mg disintegrating 4 mg PO Q8H PRN nausea and 04/08/25 tablet vomiting #60 tabs duloxetine 30 mg capsule,delayed 30 mg PO DAILY #30 ca ps 06/12/25 release duloxetine 60 mg capsule,delayed 60 mg PO DAILY #90 ca ps 07/05/25 release promethazine 12.5 mg tablet 12.5 mg PO TID PRN Nausea and/or 08/09/25 vomiting #90 tabs nitrofurantoin macrocrystal 100 mg 100 mg PO BID #10 c aps 08/13/25 capsule Allergies Allergy/AdvReac Type Severity Reaction Status Date / Time No Known Allergies Allergy Verified 08/09/25 09:17 [facility] Disclaimer: The information contained in this section may have been updated after the patient was seen, as this information can be updated by other users. Medical History Urinary tract infection affecting care of mother in first trimester, antepartum Viral upper respiratory infection Family history of migraine Screening for STD (sexually transmitted disease) Initiation of Depo Provera Encounter for Depo-Provera contraception General counseling and advice for contraceptive management Cannabinoid hyperemesis syndrome Vomiting Dehydration Laceration of left foot Influenza Sinusitis Acute bronchitis Nexplanon insertion Nexplanon removal Medical clearance for incarceration UTI (urinary tract infection) Generalized anxiety disorder Attention deficit disorder (ADD) in adult Surgical History History of ovarian cystectomy Hx of wisdom tooth extraction Hx of tonsillectomy Family History Other Family history of diabetes mellitus Hypertension Social History Smoking Status: Former smoker tobacco type: e-cigarettes alcohol intake: never substance use type: marijuana current occupational status: unemployed and other Travel in the last 8 weeks?: None number of children: 0 Have you lived/traveled outside [place] in past 30 days?: No Contact w/someone who lives/traveled outside [place] past 30 days?: No Exposure to someone with infectious disease in past 14 days?: No Do you have a fever (greater than 100.4 F or 38 C)?: No Have you tested positive for COVID-19?: No Exposed to someone with COVID-19 in past 14 days?: No Do you have a sore throat?: No Do you have a cough?: No Do you have any weakness?: No Do you have any diarrhea?: No Are you experiencing any unusual bleeding?: No Do you have any muscle aches/pain?: No Do you have any abdominal pain?: No Are you experiencing loss of taste or smell?: No Other Medical History Have you received the Flu Vaccine for this season: No Have you received the Pneumonia Vaccine: No ROS Obtained: Yes All systems reviewed & no additional complaints except as documented and Yes Systems reviewed as appropriate & no additional complaints except as documented Constitutional Constitutional: Reports system reviewed and no additional complaints, except as documented and Reports as per HPI Eyes Eyes: Reports system reviewed and no additional complaints, except as documented and Reports as per HPI ENT Ears, Nose, Mouth, and Throat: Reports system reviewed and no additional complaints, except as documented and Reports as per HPI Cardiovascular Cardiovascular: Reports system reviewed and no additional complaints, except as documented and Reports as per HPI Respiratory Respiratory: Reports system reviewed and no additional complaints, except as documented and Reports as per HPI Gastrointestinal Gastrointestingal: Reports nausea and vomiting; Denies abdominal pain or hematemesis Genitourinary Female Genitourinary: Reports dysuria Musculoskeletal Musculoskeletal: Reports system reviewed and no additional complaints, except as documented, Reports as per HPI, Denies arthralgias, Denies muscle cramps and Denies muscle weakness Neurologic Neurologic: Reports system reviewed and no additional complaints, except as documented and Reports as per HPI Physical Exam General General appearance: alert and in no apparent distress Head Head exam: atraumatic and normocephalic Eye Eye exam: Present normal appearance, PERRL and EOMI ENT ENT exam: Present normal exam and normal oropharynx Neck Neck exam: Present normal inspection Respiratory Respiratory exam: Present normal lung sounds bilaterally; Absent respiratory distress Cardiovascular Cardiovascular exam: Present regular rate and normal rhythm Abdominal Exam Abdominal exam: Present soft; Absent tenderness Neurological Exam Neurological exam: Present alert and oriented X3 Medical Decision Making Medical Records Screening: Per USPSTF and CDC recommendations, given the prevalence of disease in our region, it is our hospital?s policy to screen for HIV and viral Hepatitis for all patients aged 18 and over and those with ongoing risk factors. Nick Inquiry Pt receiving controlled substance: No Vital Signs: 08/17/25 10:11 08/17/25 10:18 08/17/25 10:30 Temperature 98 F Temperature Source Oral Pulse Rate 113 H 95 H Pulse Rate [Right] 109 H Respiratory Rate 16 Blood Pressure 146/85 H 123/83 Blood Pressure [Right Arm] 146/85 H Blood Pressure Mean [Right Arm] 105 02 Sat by Pulse Oximetry 99 99 99 08/17/25 11:00 08/17/25 11:15 08/17/25 11:30 Temperature Temperature Source Pulse Rate 91 H 84 92 H Pulse Rate [Right] Respiratory Rate Blood Pressure 119/72 114/71 Blood Pressure [Right Arm] Blood Pressure Mean [Right Arm] 02 Sat by Pulse Oximetry 100 100 97 Lab Data Lab Results 08/17/25 10:04: Urine Color Yellow, Urine Appearance Clear, Urine pH 6.5, Ur Specific Citra 1.020, Urine Protein 1+ A, Urine Glucose (UA) Negative, Urine Ketones Trace, Urine Blood Negative, Urine Nitrate Negative, Urine Bilirubin 1+ A, Urine Urobilinogen 1.0, Ur Leukocyte Esterase Negative, Urine RBC None, Urine WBC 3-5, Ur Squamous Epith Cells 10-20, Urine Bacteria 1+, Urine HCG, Qual Positive 08/17/25 10:18: WBC 9.6, RBC 4.56, Hgb 14.9, Hct 42.5, MCV 93.2, MCH 32.7 H, MCHC 35.1, RDW 11.8, Plt Count 419, MPV 9.1, Neut % (Auto) 74.0, Lymph % (Auto) 18.5, [place] % (Auto) 6.5, Eos % (Auto) 0.4, Baso % (Auto) 0.3, Neut # (Auto) 7.1, Lymph # (Auto) 1.8, [place] # (Auto) 0.6, Eos # (Auto) 0.0, Baso # (Auto) 0.0, Sodium 138, Potassium 3.9, Chloride 101, Carbon Dioxide 22, Anion Gap 18.9 H, BUN 11, Creatinine 0.70, Estimated Creat Clear 108, Estimated GFR 101, Est GFR ( Amer) 122, Glucose 115 H, Calcium 10.7 H, Total Bilirubin 1.0, AST 27, ALT 17, Alkaline Phosphatase 53, Total Protein 8.5 H, Albumin 5.5 H, Globulin 3.0, Albumin/Globulin Ratio 1.8, HIV Ag/Ab Combo Qual Negative 08/17/25 10:18 08/17/25 10:18 Orders (Tests/Meds): ED MEDICATIONS Discontinued Medications Generic Name Dose Route Start Last Admin Trade Name Kiki PRN Reason Stop Dose Admin Lactated Ringer's 1,000 mls @ 999 mls/hr 08/17/25 10:13 08/17/25 10:25 Lactated Ringer's 1000 Ml Bag IV 08/17/25 11:13 999 mls/hr .Q1H1M ONE Administration ORDERS Category Date Time Status Complete Blood Count Auto Diff Stat Lab 08/17/25 10:18 Completed Comprehensive Metabolic Panel Stat Lab 08/17/25 10:18 Completed HIV Combo Stat Lab 08/17/25 10:18 Completed Hepatitis C Ab Qual. W/ RFX Stat Lab 08/17/25 10:18 Received UA [Urinalysis and Microscopic] Stat Lab 08/17/25 10:04 Completed Urine , HCG Qual. Stat Lab 08/17/25 10:04 Completed Medical Decision Narrative: 25-year-old female currently 5 weeks . G1, P0. Presenting with nausea and vomiting for the last week. No vaginal bleeding, discharge, or abdominal pain. No vaginal cramping or abdominal cramping. Currently on Macrobid for a UTI and Phenergan for nausea/vomiting with minimal relief. Arrives slightly tachycardic. We are giving IV fluids. test positive. No evidence of UTI on urinalysis. Slightly elevated anion gap. Giving fluids. Likely secondary to dehydration. Labs otherwise unremarkable. Upon reevaluation, patient is resting comfortably, stable, no acute distress, heart rate now within normal limits. Blood pressure stable. Tolerating p.o. intake. Etiology likely unspecified nausea/vomiting in first trimester . Instructed patient to continue taking Phenergan and at home for nausea/vomiting. Patient has Macrobid already prescribed for UTI. Instructed patient to continue follow-up with [employer] AIDE. Return precaution given. Critical Care Critical Care Time Critical Care Time: No
[2025-08-17 10:17] LABS: Color,Urine YELLOW (Yellow); Glucose,Urine (UA) Negative (Negative); Ketones,Urine TRACE (Negative); Leukocyte Esterase,Urine Negative (Negative); PH,Urine 6.5 (5.0-8.5); Protein,Urine 1+ (Negative); Specific Gravity, Urine 1.020 (1.005-1.030); Urine Pregnancy, HCG Qual. Positive (Negative); Urobilinogen,Urine 1.0 EU/dl (0.2)
[2025-08-17 10:22] LABS: Bilirubin,Urine 1+ (Negative)
[2025-08-17] MEDS: LACTATED RINGERS 1000ML 1,000 ML 999 ML IV (10:25)
[2025-08-17 10:37] LABS: Hematocrit 42.5 % (37.0-47.0); Hemoglobin 14.9 g/dL (12.2-16.2); Immature Granulocytes % 0.3 %; Mean Corpuscular HGB Conc 35.1 g/dL (31.8-35.4); Mean Corpuscular Hemoglobin 32.7 pg (27.0-31.2); Mean Corpuscular Volume 93.2 fl (81-99); Nucleated Red Blood Cells % 0 %; Platelet Count 419 K/mm3 (142-424); Red Blood Count 4.56 M/mm3 (4.20-5.40); Red Cell Distribution Width-SD 40.6 fL; White Blood Count 9.6 K/mm3 (4.8-10.8)
[2025-08-17 10:46] LABS: Albumin Level 5.5 g/dl (3.5-5.0); Chloride 101 mmol/L (98-107); Potassium 3.9 mmoL/L (3.5-5.1); Sodium 138 mmol/L (136-145)
[2025-08-17 10:49] LABS: Alanine Aminotransferase 17 U/L (12-78); Albumin/Globulin Ratio 1.8 (1.1-1.8); Alkaline Phosphatase 53 U/L (38-126); Anion Gap 18.9 mEq/L (5-15); Aspartate Amino Transferase 27 U/L (14-36); Bilirubin,Total 1.0 mg/dl (0.2-1.3); Blood Urea Nitrogen 11 mg/dl (7-17); Carbon Dioxide 22 mmol/L (22.0-30.0); Creatinine Clearance Estimated 108 mL/min (50-200); Creatinine,Serum 0.70 mg/dl (0.52-1.04); Estimated Glomerular Filt Rate 101 ml/min (>60); GFR (African American) 122 ML/MIN (>60); Globulin 3.0 g/dL (1.3-3.2); Total Protein,Serum 8.5 g/dl (6.3-8.2)
[2025-08-17 10:50] LABS: Calcium 10.7 mg/dl (8.4-10.2); Glucose 115 mg/dl (74-100)
[2025-08-17 10:53] LABS: Bacteria,Urine 1+ /lpf
[2025-08-17 11:38] LABS: Hepatitis C Ab Qual. W/ RFX NEGATIVE (Negative)
== END 2025-08-17 12:22 | disposition home or self-care (01) ==
PROVIDERS: Emergency Provider Student in an Organized Health Care Education/Training Program; PCP Family Medicine
DX: O21.9 Vomiting of pregnancy, unspecified (principal); Z3A.01 Less than 8 weeks gestation of pregnancy; Z87.891 Personal history of nicotine dependence
CPT/HCPCS: 80053; 81001; 81025; 85025; 86803; 87389; 96360; 99284; 99285; J7120